=== PATIENT | female | born 1945 | race Caucasian/White ===

== ENCOUNTER 2016-07-10 17:40 | Inpatient (IN) | payer OTHER ==
[2016-07-10 17:58] LABS: FIO2 12
[2016-07-10 18:06] LABS: PCO2 Arterial 84 mmHg (35-45)
[2016-07-10 18:08] LABS: Hematocrit 32 % (35-47); Hemoglobin 9.3 g/dl (12.0-16.0); Mean Corpuscular HGB Conc 29 g/dl (31-36); Mean Corpuscular Hemoglobin 22 pg (27-31); Mean Corpuscular Volume 74 fL (80-97); Mean Platelet Volume 9 um3 (7.4-10.4); Red Blood Count 4.34 10^6/ul (4.0-5.4); Red Cell Distribution Width 23 % (10.5-15); White Blood Count 6.3 10^3/ul (3.5-10.8)
[2016-07-10 18:09] LABS: Add Diff/Slide Review? Slide Review Added; Comments Flag Yes
[2016-07-10 18:19] LABS: Albumin 3.4 g/dL (3.2-5.2); BUN/Creatinine Ratio 17.3 (8-20); Calcium 9.6 mg/dL (8.6-10.3); EGFR African American 98.8 (>60); EGFR Non-African American 76.8 (>60); Globulin 3.6 g/dL (2-4); Magnesium 1.9 mg/dL (1.9-2.7); Potassium 3.4 mmol/L (3.5-5.0); Total Bilirubin 2.2 mg/dL (0.2-1.0)
[2016-07-10 18:28] LABS: Troponin I 0.04 ng/mL (<0.04)
--- NOTE | 2016-07-10 18:42 | RAD ---
HISTORY: Shortness of breath COMPARISONS: None VIEWS:1: Single frontal portable view of the chest at 6:30 PM FINDINGS: LINES AND TUBES: There is left-sided pacemaker CARDIOMEDIASTINAL SILHOUETTE: The cardiac silhouette is enlarged. The cardiomediastinal silhouette is otherwise normal for portable technique. PLEURA: The costophrenic angles are sharp. No pleural abnormalities are noted. LUNG PARENCHYMA: There is a diffuse reticular pattern with indistinct pulmonary vessels. ABDOMEN: The upper abdomen is clear. There is no subphrenic gas. BONES AND SOFT TISSUES: No bone or soft tissue abnormalities are noted. IMPRESSION: CARDIOMEGALY WITH PULMONARY INTERSTITIAL EDEMA
[2016-07-10 18:45] LABS: Burr Cells 1+; Hypochromasia 3+
[2016-07-10 18:46] LABS: Macrocytosis 1+; Microcytosis 1+; Stomatocytes 2+; Target Cells 1+
[2016-07-10 18:47] LABS: Add Path Review? YES; Polychromasia 1+
--- NOTE | 2016-07-10 18:54 | ED ---
Priya Yuan Salem, scribed for Ronna Aguiar MD on 07/10/16 at 1842 . Respiratory - HPI Summary HPI Summary: Patient is a 70 y/o female who presents to the ED per EMS with low oxygen saturation since 1100. 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 She reports she is typically SOB and is normally on BiPAP at nights (mask, no breathing tube). Family states that pt fell on her left hip on June 11, 2016. She was hospitalized for four days, but her hip was not broken. Pt was transferred to [facility] as she developed resp distress. This was felt to be related to CHF. Pt was at [facility] x 3 weeks. Pt was on increased bipap setting and aggressive lasix, but was never intubated. Pt was transferred to [facility] for rehab yesterday. Today, when her oxygen levels had decreased, her bipap settings were adjusted and she was given Lasix 80mg IM at that time. Pt denies CP, abd pain, nausea or vomiting. Pt state her breathing has improved. She states yesterday had cough - non productive. Pt does have a salazar. Pt is on coumadin for a fib. PMHx significant for HTN, a fib, and DM. Pt is MOLST - full code - History of Current Complaint Chief Complaint: EDShortnessOfBreath Stated Complaint: LOW O2 STAT Time Seen by Provider: 07/10/16 17:42 Hx Obtained From: Patient, Family/Ad Copy Writer - Daughter and ., EMS Onset/Duration: Gradual Onset, Lasting Hours Initial Severity: Moderate Current Severity: Moderate Pain Intensity: 7 Sputum Amount: None Aggravating Factor(s): Nothing Alleviating Factor(s): Nothing Associated Signs and Symptoms: Negative - Risk Factors Status Asthmaticus Risk Factors: Negative Pulmonary Embolism Risk Factors: Negative Cardiac Risk Factors: Negative - Allergy/Home Medications Allergies/Adverse Reactions: Allergies Allergy/AdvReac Type Severity Reaction Status Date / Time Morphine Allergy Rash Verified 07/10/16 17:57 Home Medications: Home Medications Acetaminophen TAB* [Tylenol TAB*] 650 mg PO Q6H PRN 07/10/16 [History Confirmed 07/10/16] Albuterol 2.5MG/3ML (0.083%)* [Ventolin 2.5 MG/3 ML NEB.JOSE CRUZ*] 2.5 mg INH Q4H PRN 07/10/16 [History Confirmed 07/10/16] Albuterol HFA INHALER* [Ventolin HFA Inhaler*] 1 puff INH Q4H PRN 07/10/16 [ History Confirmed 07/10/16] Albuterol/Ipratropium NEB.JOSE CRUZ* [Duoneb (Albuterol 2.5 MG/Ipratropium 0.5 MG)] 1 neb INH Q4H PRN 07/10/16 [History Confirmed 07/10/16] Bisacodyl SUPP* [Dulcolax Supp*] 10 mg [place] DAILY PRN 07/10/16 [History Confirmed 07/10/16] Calcium Carbonate CHEW TAB* [Tums*] 500 mg PO DAILY PRN 07/10/16 [History Confirmed 07/10/16] Cholecalciferol [Vitamin D] 4,000 unit PO DAILY 07/10/16 [History Confirmed ] Cyanocobalamin [Vitamin B-12] 100 mcg PO DAILY 07/10/16 [History Confirmed 07/10] Docusate CAP* [Colace Cap*] 100 mg PO BID 07/10/16 [History Confirmed 07/10/16] Ferrous Sulfate TAB* 325 mg PO DAILY 07/10/16 [History Confirmed 07/10/16] Furosemide JOSE CRUZ* [Lasix JOSE CRUZ*] 80 mg PO ONCE PRN 07/10/16 [History Confirmed 07/10] Furosemide TAB* [Lasix TAB*] 40 mg PO ONCE 07/10/16 [History Confirmed 07/10/16] Furosemide TAB* [Lasix TAB*] 80 mg PO BID 07/10/16 [History Confirmed 07/10/16] Glucagon (Rdna) [Glucagon Emergency Kit] 1 mg IM ONCE PRN 07/10/16 [History Confirmed 07/10/16] Insulin GLARGINE(*) [Lantus(*)] 8 units SUBCUT BEDTIME 07/10/16 [History Confirmed 07/10/16] Levothyroxine Sodium 400 mcg PO DAILY 07/10/16 [History Confirmed 07/10/16] Lidocaine PATCH 5%* [Lidoderm 5% Patch*] 1 patch TRANSDERM DAILY 07/10/16 [ History Confirmed 07/10/16] Lisinopril [Lisinopril 2.5 MG-] 2.5 mg PO DAILY 07/10/16 [History Confirmed ] LoraTADine TAB(NF) [Claritin 10 MG TAB(NF)] 10 mg PO DAILY 07/10/16 [History Confirmed 07/10/16] Metoprolol Succinate XL TAB* [Toprol XL TAB*] 25 mg PO DAILY 07/10/16 [History Confirmed 07/10/16] Multivitamins/Minerals TAB* [Theragran/minerals TAB*] 1 tab PO DAILY 07/10/16 [ History Confirmed 07/10/16] Pantoprazole TAB (NF) [Protonix TAB (NF)] 20 mg PO DAILY 07/10/16 [History Confirmed 07/10/16] Sennosides-Docusate Sodium [Senna-S 8.6-50 mg] 2 tab PO BEDTIME 07/10/16 [ History Confirmed 07/10/16] PMH/Surg Hx/FS Hx/Imm Hx Previously Healthy: Yes Endocrine/Hematology History: Reports: Hx Anticoagulant Therapy - coumadin, Hx Diabetes Cardiovascular History: Reports: Hx Hypertension Respiratory History: Reports: Hx Asthma - Surgical History Surgery Procedure, Year, and Place: pacemaker Infectious Disease History: Unable to Obtain/Confirm Infectious Disease History: Denies: Traveled Outside the [place] in Last 30 Days - Family History Known Family History: Negative: Diabetes - Social History Lives: At [facility] Alcohol Use: Rare Hx Substance Use: No Substance Use Type: Reports: None Smoking Status (MU): Former Smoker Review of Systems Constitutional: Negative Negative: Fever Eyes: Negative ENT: Negative Cardiovascular: Negative Positive: Other - Low O2 Sat. . Negative: Chest Pain Positive: Shortness Of Breath. Negative: Cough Genitourinary: Negative Positive: Other - Left ankle, hip pain Skin: Negative Neurological: Negative All Other Systems Reviewed And Are Negative: Yes Physical Exam Triage Information Reviewed: Yes Vital Signs On Initial Exam: Initial Vitals Temp Pulse Resp BP Pulse Ox 98 F 75 16 119/83 99 07/10/16 17:48 07/10/16 17:48 07/10/16 17:48 07/10/16 17:48 07/10/16 17:48 Vital Signs Reviewed: Yes Appearance: Positive: Well-Appearing, Well-Nourished, Obese Skin: Positive: Warm, Skin Color Reflects Adequate Perfusion, Dry Head/Face: Positive: Normal Head/Face Inspection Eyes: Positive: Normal, EOMI, PHU ENT: Positive: Pharynx normal, TMs normal Neck: Positive: Supple, Nontender, No Lymphadenopathy Respiratory/Lung Sounds: Positive: Decreased Breath Sounds, Other - Pt speaking full easy sentences, no accessory muscle use, no distress. Negative: Stridor, Wheezes Cardiovascular: Positive: Normal, RRR - heart sounds distant second to habitus Abdomen Description: Positive: Nontender, No Organomegaly, Soft Bowel Sounds: Positive: Present Musculoskeletal: Positive: Normal. Negative: Strength/ROM Intact Neurological: Positive: Normal, Sensory/Motor Intact, Alert, Oriented to Person Place, Time Psychiatric: Positive: Normal AVPU Assessment: Alert - Vazquez Coma Scale Best Eye Response: 4 - Spontaneous Best Motor Response: 6 - Obeys Commands Best Verbal Response: 5 - Oriented Coma Scale Total: 15 Diagnostics - Vital Signs Vital Signs Temp Pulse Resp BP Pulse Ox 07/10/16 18:33 71 20 121/55 100 07/10/16 18:28 20 07/10/16 17:48 98 F 75 16 119/83 99 - Laboratory Lab Results: Lab Results 07/10/16 07/10/16 07/10/16 Range/Units 17:40 17:40 17:40 WBC 6.3 (3.5-10.8) 10^3/ul RBC 4.34 (4.0-5.4) 10^6/ul Hgb 9.3 L (12.0-16.0) g/dl Hct 32 L (35-47) % MCV 74 L (80-97) fL MCH 22 L (27-31) pg MCHC 29 L (31-36) g/dl RDW 23 H (10.5-15) % Plt Count 157 (150-450) 10^3/ul MPV 9 (7.4-10.4) um3 Neut % (Auto) 64.4 (38-83) % Lymph % (Auto) 23.3 L (25-47) % Perry % (Auto) 9.9 H (1-9) % Eos % (Auto) 1.3 (0-6) % Baso % (Auto) 1.1 (0-2) % Absolute Neuts (auto) 4.1 (1.5-7.7) 10^3/ul Absolute Lymphs (auto) 1.5 (1.0-4.8) 10^3/ul Absolute Monos (auto) 0.6 (0-0.8) 10^3/ul Absolute Eos (auto) 0.1 (0-0.6) 10^3/ul Absolute Basos (auto) 0.1 (0-0.2) 10^3/ul Absolute Nucleated RBC 0.01 10^3/ul Nucleated RBC % 0.2 Patient Temperature ABG pH (7.35-7.45) ABG pCO2 (35-45) mmHg ABG pO2 (80-100) mmHg ABG HCO3 (19-31) mmol/L ABG O2 Saturation (95-98) % ABG Base Excess (-2.0-2.0) Respiration Rate Ventilator Type Vent Mode FiO2 Inspiratory Time PEEP Pressure Support Pressure Control EPAP IPAP BiPAP Sodium 138 (133-145) mmol/L Potassium 3.4 L (3.5-5.0) mmol/L Chloride 84 L (101-111) mmol/L Carbon Dioxide Pending Anion Gap Pending BUN 13 (6-24) mg/dL Creatinine 0.75 (0.51-0.95) mg/dL Est GFR ( Amer) 98.8 (>60) Est GFR (Non-Af Amer) 76.8 (>60) BUN/Creatinine Ratio 17.3 (8-20) Glucose 136 H (70-100) mg/dL Lactic Acid 1.4 (0.5-2.0) mmol/L Calcium 9.6 (8.6-10.3) mg/dL Magnesium 1.9 (1.9-2.7) mg/dL Total Bilirubin 2.20 H (0.2-1.0) mg/dL AST 15 (13-39) U/L ALT 6 L (7-52) U/L Alkaline Phosphatase 58 (34-104) U/L Total Creatine Kinase 10 (10-223) U/L Troponin I 0.04 H* (<0.04) ng/mL Total Protein 7.0 (6.4-8.9) g/dL Albumin 3.4 (3.2-5.2) g/dL Globulin 3.6 (2-4) g/dL Albumin/Globulin Ratio 0.9 L (1-3) 07/10/16 Range/Units 17:47 WBC (3.5-10.8) 10^3/ul RBC (4.0-5.4) 10^6/ul Hgb (12.0-16.0) g/dl Hct (35-47) % MCV (80-97) fL MCH (27-31) pg MCHC (31-36) g/dl RDW (10.5-15) % Plt Count (150-450) 10^3/ul MPV (7.4-10.4) um3 Neut % (Auto) (38-83) % Lymph % (Auto) (25-47) % Perry % (Auto) (1-9) % Eos % (Auto) (0-6) % Baso % (Auto) (0-2) % Absolute Neuts (auto) (1.5-7.7) 10^3/ul Absolute Lymphs (auto) (1.0-4.8) 10^3/ul Absolute Monos (auto) (0-0.8) 10^3/ul Absolute Eos (auto) (0-0.6) 10^3/ul Absolute Basos (auto) (0-0.2) 10^3/ul Absolute Nucleated RBC 10^3/ul Nucleated RBC % Patient Temperature Not Reportable ABG pH 7.42 (7.35-7.45) ABG pCO2 84 H* (35-45) mmHg ABG pO2 140 H (80-100) mmHg ABG HCO3 45.4 H* (19-31) mmol/L ABG O2 Saturation 99.8 H (95-98) % ABG Base Excess 26.2 H (-2.0-2.0) Respiration Rate Not Reportable Ventilator Type Not Reportable Vent Mode Not Reportable FiO2 12 Inspiratory Time Not Reportable PEEP Not Reportable Pressure Support Not Reportable Pressure Control Not Reportable EPAP Not Reportable IPAP Not Reportable BiPAP Not Reportable Sodium (133-145) mmol/L Potassium (3.5-5.0) mmol/L Chloride (101-111) mmol/L Carbon Dioxide Anion Gap BUN (6-24) mg/dL Creatinine (0.51-0.95) mg/dL Est GFR ( Amer) (>60) Est GFR (Non-Af Amer) (>60) BUN/Creatinine Ratio (8-20) Glucose (70-100) mg/dL Lactic Acid (0.5-2.0) mmol/L Calcium (8.6-10.3) mg/dL Magnesium (1.9-2.7) mg/dL Total Bilirubin (0.2-1.0) mg/dL AST (13-39) U/L ALT (7-52) U/L Alkaline Phosphatase (34-104) U/L Total Creatine Kinase (10-223) U/L Troponin I (<0.04) ng/mL Total Protein (6.4-8.9) g/dL Albumin (3.2-5.2) g/dL Globulin (2-4) g/dL Albumin/Globulin Ratio (1-3) Result Diagrams: 07/10/16 17:40 07/10/16 17:40 Lab Statement: Any lab studies that have been ordered have been reviewed, and results considered in the medical decision making process. - Radiology CXR Radiology Interpretation Completed By: Radiologist - IMPRESSION: CARDIOMEGALY WITH PULMONARY INTERSTITIAL EDEMA - EKG 1750 EKG Interpretation: 70 bpm. IVCD. Occasional PVC. Pt with pacer. Re-Evaluation - Re-Evaluation First Eval Re-Evaluation Time: 18:30 Comment: Pt continues to do well - no complaints.Pt placed on home BIPAP settings given elevated PCO2. Reviewed labs with pt - borderline troponin. Pt with EKG changes from [facility] last (2008). Records for [facility] requested. d/ w Dr. Harman - will admit pt. Pt in agreement with plan Disposition - Course Assessment/Plan: Pt presents to ED by EMS with extensive hx including recent hospitalization for respi failure. Pt was transferred from rehab facility with report of hypoxia on her baseline bipap. Upon arrival to ED, pt saturation 99% on 12L oxymax. Pt withotu apparent respiratory distress. 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 Pt with salazar and is diruesis. Will check abg and resp support as indications. Will check labs, ekg, cxr. Pt's last visit to [facility] > 7 years ago - Diagnoses Provider Diagnoses: Hypercapnia, Elevated troponin - Physician Notifications Discussed Care Of Patient With: Dr. Harman - accepting pt admission Time Discussed With Above Provider: 18:35 Instructed by Provider To: Admit As Inpatient Discharge - Discharge Plan Condition: Fair Disposition: ADMITTED TO [facility] The documentation as recorded by the Priya de la cruz Salem accurately reflects the service I personally performed and the decisions made by me, Ronna Aguiar MD.
[2016-07-10] MEDS ORDERED: Bisacodyl SUPP* 10 MG SUPP PR PRN (20:16)
[2016-07-10] MEDS ORDERED: Albuterol/Ipratropium NEB.SOL* Albuterol 2.5 MG/Ipratropium 0.5 MG 3 ML INH PRN (20:16)
[2016-07-10] MEDS ORDERED: Albuterol 2.5 MG/3 ML NEB.SOL* (0.083%) INH PRN (20:16)
[2016-07-10] MEDS ORDERED: Albuterol HFA INHALER* 8 gm MDI INH PRN (20:16)
[2016-07-10] MEDS ORDERED: Calcium Carbonate CHEW TAB* 500 MG (TUMS) PO PRN (20:16)
[2016-07-10] MEDS ORDERED: Furosemide SOL* 10 MG/ML 60 ML BOT PO PRN (20:16)
[2016-07-10] MEDS ORDERED: Dextrose 50% Syringe 50 ML* 25 GM/50 ML SYRINGE IV PUSH PRN (20:36)
[2016-07-10] MEDS: Docusate CAP* 100 MG PO SCH (21:55)
[2016-07-10] MEDS: Senna TAB PO SCH (21:56)
[2016-07-10] MEDS: Insulin GLARGINE(*) 1 UNITS UNIT SUBCUT SCH (22:05)
[2016-07-10] MEDS: Furosemide TAB* 40 MG PO SCH (22:05)
[2016-07-10] MEDS: Insulin LISPRO* 1 UNITS UNIT SUBCUT SCH (22:05)
[2016-07-10] MEDS: Acetaminophen TAB* 325 MG PO PRN (23:06)
[2016-07-11 02:51] LABS: Troponin I 0.04 ng/mL (<0.04)
--- NOTE | 2016-07-11 04:25 | HP ---
HISTORY AND PHYSICAL: DATE OF ADMISSION: 07/10/16 CHIEF COMPLAINT: Shortness of breath. HISTORY OF PRESENT ILLNESS: The patient is a 70-year-old woman who was just admitted to [facility] from a stay in [place] where she was doing fine yesterday evening when she initially arrived, but became hypoxic today. Apparently, she arrived at 5 p.m. yesterday, ate, and slept well. She had physical therapy today, which also went well; but about 2 p.m. while in her room , her oxygen apparently dropped to about 58%. The patient does remember all of what happened. She was placed on BiPAP and did not improve dramatically. She was given her usual Zaroxolyn, but then got 80 mg of intravenous Lasix. She has put out quite a bit of fluid since then over a liter. She was sent to the hospital after that. The patient denies ever having any chest pain, but had a little wheezing and no congestion. She already feels better and back to her usual state of health. In terms of eating, she only had little soup today. She also had some macaroni salad yesterday, which may have been a bit salty. She is back on the BiPAP, but she is on BiPAP normally in the evening at [facility]. PAST MEDICAL HISTORY: Significant for type 2 diabetes with diabetic neuropathy and gastroparesis; morbid obesity; obstructive sleep apnea, on BiPAP at night; hypothyroidism; sick sinus syndrome with atrial fibrillation, on anticoagulation , status post pacemaker placement; hyperlipidemia; hypertension; GERD; recent admission to [facility] for concern of the left hip fracture, which did not come to pass, but she did end up having hypercapnic respiratory failure. CURRENT MEDICATIONS: As follow: 1. Albuterol inhaler 1 puff every 4 hours as needed. 2. Calcium carbonate 500 mg daily as needed. 3. Furosemide 80 mg daily as needed after Lasix solution. 4. Glucagon 1 mg IM once as needed. 5. Furosemide 40 mg daily. 6. Albuterol DuoNebs nebulizer 1 nebulizer every 4 hours as needed. 7. Dulcolax suppository 10 mg daily as needed. 8. Albuterol nebulizer 2.5 mg inhaler every 4 hours as needed. 9. Lidocaine patch 1 patch transdermal daily. 10. Tylenol 650 mg every 6 hours as needed. 11. Furosemide 80 mg twice daily. 12. Docusate 100 mg twice daily. 13. Vitamin D 4000 units daily. 14. Vitamin B12 100 mcg daily. 15. Senna S 2 tabs at bedtime. 16. Protonix 20 mg daily. 17. Multivitamin 1 tablet daily. 18. Metoprolol succinate 25 mg daily. 19. Loratadine 10 mg daily. 20. Lisinopril 2.5 mg daily. 21. Synthroid 400 mcg daily. 22. Lantus insulin 8 units subcu at bedtime. 23. Ferrous sulfate 325 mg daily. ALLERGIES: She has an allergy/adverse reaction to MORPHINE. FAMILY HISTORY: High cholesterol in her sister, heart disease in her father and sister, alcohol abuse in her brother and her mother had some form of cancer. SOCIAL HISTORY: She is . Lives with her spouse, currently at [facility]. No tobacco, no alcohol, or recreational drug use. REVIEW OF SYSTEMS: A 14-point review of systems was completed with the patient. All pertinent positives and negatives are in the history of present illness, otherwise it is negative. PHYSICAL EXAMINATION GENERAL: Obese woman, lying in bed, in no acute distress. VITAL SIGNS: Temperature 98.1 degrees, heart rate 71 beats per minute, respiratory rate 18 breaths per minute, pulse ox 100%, and blood pressure 111/ 66. HEENT: Normocephalic, atraumatic. Pupils are equal, round, and reactive to light. Moist mucous membranes. NECK: Supple. No JVD, bruits, palpable thyroid, or lymphadenopathy. CHEST: Decreased breath sounds bilaterally. CARDIOVASCULAR: S1, S2 appreciated. ABDOMEN: Positive bowel sounds in all 4 quadrants. Soft, nontender, nondistended, obese. EXTREMITIES: No cyanosis, clubbing. Got bilateral edema. NEURO: Alert and oriented x3. Moves all extremities. SKIN: No rashes or abnormalities. LABORATORY DATA: Sodium 138, potassium 3.4, chloride 84, CO2 45, BUN 13, creatinine 0.75, glucose 136, troponin 0.04. BNP 244. White count 6.3, hemoglobin 9.3, hematocrit 32, platelets 157. INR 2.99. Chest x-ray was interpreted by Radiology as cardiomegaly with pulmonary interstitial edema. EKG showed AFib with intraventricular conduction delay. ASSESSMENT AND PLAN: 1. Respiratory distress. The patient now back to her baseline, probably had some fluid overload of unknown etiology. May need diuretics adjusted, but I suspect the patient will be able to go back to [facility] tomorrow on her usual settings. 2. Atrial fibrillation. Her heart rate is adequately controlled and her INR is 2.99, but I do not see was she on Coumadin. This needs to be researched, but I assume by her INR that she is on Coumadin and this was not documented in the transfer. 3. Chronic obstructive pulmonary disease. Continue inhalers and nebulizers. No evidence of wheezing. 4. Pain management. Continue lidocaine patch. 5. Hypothyroidism, stable. Continue Synthroid. 6. Diabetes mellitus. Continue current regimen. Fingersticks sliding scale insulin. 7. FEN. Consistent carb diet. 8. DVT prophylaxis. She is supposedly on Coumadin. Her INR is therapeutic and finally, the patient is a full code. TIME SPENT: Over 75 minutes were spent on this H and P, more than 40 minutes of which were spent in direct [id number] contact with the patient in evaluation, physical exam, counseling, and coordination of care. CC: Garry Magaña* [id number]/[facility] #: [id number] [facility] HOSPITALGail
[2016-07-11] MEDS: Levothyroxine TAB* 100 MCG TAB PO SCH (06:10)
[2016-07-11] MEDS: Insulin LISPRO* 1 UNITS UNIT SUBCUT SCH ×4 (08:25→21:40)
[2016-07-11] MEDS: Furosemide TAB* 40 MG PO SCH ×2 (08:25→17:23)
[2016-07-11] MEDS: Cholecalciferol TAB* 1000 UNITS PO SCH (08:25)
[2016-07-11] MEDS: Cyanocobalamin TAB* 500 MCG PO SCH (08:26)
[2016-07-11] MEDS: Docusate CAP* 100 MG PO SCH ×2 (08:26→21:52)
[2016-07-11] MEDS: Ferrous Sulfate TAB* 325 MG PO SCH (08:27)
[2016-07-11] MEDS: Lidocaine PATCH 5%* 1 PATCH TRANSDERM SCH (08:29)
[2016-07-11] MEDS: Lisinopril TAB* 5 MG PO SCH (08:34)
[2016-07-11] MEDS: Metoprolol Succinate XL TAB* 25 MG PO SCH (08:34)
[2016-07-11] MEDS: Multivitamins/Minerals TAB PO SCH (08:35)
[2016-07-11] MEDS: Pantoprazole TAB (NF) 20 MG TAB PO SCH (09:12)
[2016-07-11 10:19] LABS: FIO2 50
[2016-07-11 10:32] LABS: PCO2 Arterial 89 mmHg (35-45)
[2016-07-11] MEDS: Acetaminophen TAB* 325 MG PO PRN (13:54)
--- NOTE | 2016-07-11 14:39 | PN ---
Subjective Date of Service: 07/11/16 Interval History: Pt is feeling ok. She is SOB which is her usual. Her speech is slurred which her states is usual. She c/o pain in her legs. Objective Active Medications: Acetaminophen (Tylenol Tab*) 650 mg PO Q6H PRN PRN Reason: PAIN Last Admin: 07/11/16 13:54 Dose: 650 mg Albuterol (Ventolin 2.5 Mg/3 Ml Neb.Carol*) 2.5 mg INH Q4H PRN PRN Reason: WHEEZING Albuterol (Ventolin Hfa Inhaler*) 1 puff INH Q4H PRN PRN Reason: SHORTNESS OF BREATH Albuterol/Ipratropium (Duoneb (Albuterol 2.5 Mg/Ipratropium 0.5 Mg)) 1 neb INH Q4H PRN PRN Reason: SHORTNESS OF BREATH Bisacodyl (Dulcolax Supp*) 10 mg AL DAILY PRN PRN Reason: CONSTIPATION Calcium Carbonate (Tums*) 500 mg PO DAILY PRN PRN Reason: INDIGESTION Cetirizine HCl (Zyrtec*) 10 mg PO QPM [facility] Cholecalciferol (Vitamin D Tab*) 4,000 units PO DAILY [facility] Last Admin: 07/11/16 08:25 Dose: 4,000 units Cyanocobalamin (Vitamin B12 Tab*) 250 mcg PO DAILY [facility] Last Admin: 07/11/16 08:26 Dose: 250 mcg Dextrose (D50w Syringe 50 Ml*) 12.5 gm IV PUSH .FOR FS < 60 - SS PRN PRN Reason: FS < 60 Docusate Sodium (Colace Cap*) 100 mg PO BID [facility] Last Admin: 07/11/16 08:26 Dose: 100 mg Ferrous Sulfate (Ferrous Sulfate Tab*) 325 mg PO DAILY [facility] Last Admin: 07/11/16 08:27 Dose: 325 mg Furosemide (Lasix Tab*) 80 mg PO 0800,1800 [facility] Last Admin: 07/11/16 08:25 Dose: 80 mg Insulin Glargine (Lantus(*)) 8 units SUBCUT BEDTIME [facility] Last Admin: 07/10/16 22:05 Dose: 8 units Insulin Human Lispro (Humalog*) 0 units SUBCUT ACHS [facility] PRN Reason: Protocol Last Admin: 07/11/16 12:31 Dose: 3 units Levothyroxine Sodium (Synthroid Tab*) 400 mcg PO DAILY@0600 [facility] Last Admin: 07/11/16 06:10 Dose: 400 mcg Lidocaine (Lidoderm 5% Patch*) 1 patch TRANSDERM DAILY [facility] Last Admin: 07/11/16 08:29 Dose: 1 patch Lisinopril (Prinivil Tab*) 2.5 mg PO DAILY [facility] Last Admin: 07/11/16 08:34 Dose: 2.5 mg Metoprolol Succinate (Toprol Xl Tab*) 25 mg PO DAILY [facility] Last Admin: 07/11/16 08:34 Dose: 25 mg Multivitamins/Minerals (Theragran/Minerals Tab*) 1 tab PO DAILY [facility] Last Admin: 07/11/16 08:35 Dose: 1 tab Pantoprazole Sodium (Protonix Tab (Nf)) 20 mg PO DAILY [facility] Last Admin: 07/11/16 09:12 Dose: 20 mg Pharmacy Profile Note (Lidocaine Patch Remove*) 1 note PATCH OFF 2100 [facility] Senna (Senokot Tab*) 2 tab PO BEDTIME [facility] Last Admin: 07/10/16 21:56 Dose: Not Given Vital Signs 07/10/16 07/10/16 07/10/16 19:34 20:48 21:23 Temperature 98.1 F 98.2 F 97.9 F Pulse Rate 71 70 116 Respiratory 18 20 20 Rate Blood Pressure 111/66 121/71 116/69 (mmHg) O2 Sat by Pulse 100 100 96 Oximetry 07/11/16 07/11/16 07/11/16 04:25 08:07 11:17 Temperature 97.2 F 98.5 F Pulse Rate 70 71 69 Respiratory 16 20 22 Rate Blood Pressure 112/52 128/54 138/51 (mmHg) O2 Sat by Pulse 98 97 98 Oximetry Oxygen Devices in Use Now: Nasal Cannula - 98%-6L Appearance: Super morbidly obese female sitting up in bed, NAD Eyes: No Scleral Icterus Ears/Nose/Mouth/Throat: Mucous Membranes Moist Respiratory: Symmetrical Chest Expansion and Respiratory Effort, Clear to Auscultation Cardiovascular: NL Sounds; No Murmurs; No JVD, RRR, No Edema Abdominal: NL Sounds; No Tenderness; No Distention Extremities: No Clubbing, Cyanosis Skin: No Rash or Ulcers, No Nodules or Sclerosis Neurological: Alert and Oriented x 3, - - + dysarthric speech Result Diagrams: 07/10/16 17:40 07/10/16 17:40 Additional Lab and Data: Lab Results 07/10/16 07/10/16 07/10/16 Range/Units 17:40 17:40 17:40 WBC 6.3 (3.5-10.8) 10^3/ul RBC 4.34 (4.0-5.4) 10^6/ul Hgb 9.3 L (12.0-16.0) g/dl Hct 32 L (35-47) % MCV 74 L (80-97) fL MCH 22 L (27-31) pg MCHC 29 L (31-36) g/dl RDW 23 H (10.5-15) % Plt Count 157 (150-450) 10^3/ul MPV 9 (7.4-10.4) um3 Neut % (Auto) 64.4 (38-83) % Lymph % (Auto) 23.3 L (25-47) % [place] % (Auto) 9.9 H (1-9) % Eos % (Auto) 1.3 (0-6) % Baso % (Auto) 1.1 (0-2) % Absolute Neuts (auto) 4.1 (1.5-7.7) 10^3/ul Absolute Lymphs (auto) 1.5 (1.0-4.8) 10^3/ul Absolute Monos (auto) 0.6 (0-0.8) 10^3/ul Absolute Eos (auto) 0.1 (0-0.6) 10^3/ul Absolute Basos (auto) 0.1 (0-0.2) 10^3/ul Absolute Nucleated RBC 0.01 10^3/ul Nucleated RBC % 0.2 Patient Temperature ABG pH (7.35-7.45) ABG pCO2 (35-45) mmHg ABG pO2 (80-100) mmHg ABG HCO3 (19-31) mmol/L ABG O2 Saturation (95-98) % ABG Base Excess (-2.0-2.0) Respiration Rate Ventilator Type Vent Mode FiO2 Inspiratory Time PEEP Pressure Support Pressure Control EPAP IPAP BiPAP Sodium 138 (133-145) mmol/L Potassium 3.4 L (3.5-5.0) mmol/L Chloride 84 L (101-111) mmol/L Carbon Dioxide Pending Anion Gap Pending BUN 13 (6-24) mg/dL Creatinine 0.75 (0.51-0.95) mg/dL Est GFR ( Amer) 98.8 (>60) Est GFR (Non-Af Amer) 76.8 (>60) BUN/Creatinine Ratio 17.3 (8-20) Glucose 136 H (70-100) mg/dL Lactic Acid 1.4 (0.5-2.0) mmol/L Calcium 9.6 (8.6-10.3) mg/dL Magnesium 1.9 (1.9-2.7) mg/dL Total Bilirubin 2.20 H (0.2-1.0) mg/dL AST 15 (13-39) U/L ALT 6 L (7-52) U/L Alkaline Phosphatase 58 (34-104) U/L Total Creatine Kinase 10 (10-223) U/L Troponin I 0.04 H* (<0.04) ng/mL Total Protein 7.0 (6.4-8.9) g/dL Albumin 3.4 (3.2-5.2) g/dL Globulin 3.6 (2-4) g/dL Albumin/Globulin Ratio 0.9 L (1-3) 07/10/16 Range/Units 17:47 WBC (3.5-10.8) 10^3/ul RBC (4.0-5.4) 10^6/ul Hgb (12.0-16.0) g/dl Hct (35-47) % MCV (80-97) fL MCH (27-31) pg MCHC (31-36) g/dl RDW (10.5-15) % Plt Count (150-450) 10^3/ul MPV (7.4-10.4) um3 Neut % (Auto) (38-83) % Lymph % (Auto) (25-47) % [place] % (Auto) (1-9) % Eos % (Auto) (0-6) % Baso % (Auto) (0-2) % Absolute Neuts (auto) (1.5-7.7) 10^3/ul Absolute Lymphs (auto) (1.0-4.8) 10^3/ul Absolute Monos (auto) (0-0.8) 10^3/ul Absolute Eos (auto) (0-0.6) 10^3/ul Absolute Basos (auto) (0-0.2) 10^3/ul Absolute Nucleated RBC 10^3/ul Nucleated RBC % Patient Temperature Not Reportable ABG pH 7.42 (7.35-7.45) ABG pCO2 84 H* (35-45) mmHg ABG pO2 140 H (80-100) mmHg ABG HCO3 45.4 H* (19-31) mmol/L ABG O2 Saturation 99.8 H (95-98) % ABG Base Excess 26.2 H (-2.0-2.0) Respiration Rate Not Reportable Ventilator Type Not Reportable Vent Mode Not Reportable FiO2 12 Inspiratory Time Not Reportable PEEP Not Reportable Pressure Support Not Reportable Pressure Control Not Reportable EPAP Not Reportable IPAP Not Reportable BiPAP Not Reportable Sodium (133-145) mmol/L Potassium (3.5-5.0) mmol/L Chloride (101-111) mmol/L Carbon Dioxide Anion Gap BUN (6-24) mg/dL Creatinine (0.51-0.95) mg/dL Est GFR ( Amer) (>60) Est GFR (Non-Af Amer) (>60) BUN/Creatinine Ratio (8-20) Glucose (70-100) mg/dL Lactic Acid (0.5-2.0) mmol/L Calcium (8.6-10.3) mg/dL Magnesium (1.9-2.7) mg/dL Total Bilirubin (0.2-1.0) mg/dL AST (13-39) U/L ALT (7-52) U/L Alkaline Phosphatase (34-104) U/L Total Creatine Kinase (10-223) U/L Troponin I (<0.04) ng/mL Total Protein (6.4-8.9) g/dL Albumin (3.2-5.2) g/dL Globulin (2-4) g/dL Albumin/Globulin Ratio (1-3) Microbiology and Other Data: Microbiology 07/10/16 22:50 Nasal Screen MRSA (PCR)(SASKIA) - Final Nasal Mrsa Positive Assess/Plan/Problems-Billing Ms Springer is a super morbidly obese female with a h/o chronic hypercarbic respiratory failure, type II DM, JOLEEN, hypothyroidism, h/o afib with SSS, HTN, HLD and GERD who presented to the ER with c/o low O2 saturations. - Patient Problems (1) Hypoxia Current Visit: Yes Status: Acute Code(s): R09.02 - HYPOXEMIA SNOMED Code(s ): 259110316 Comment: The patient was markedly hypoxic upon EMS arrival to [facility]. Her O2 saturtations are now stable and it appears she may be able to be weaned down some on the O2. ? pulmonary edema as cause of the hypoxia. Will monitor overnight to ensure she is stable prior to going back to rehab. (2) Chronic hypercapnic respiratory failure Current Visit: Yes Status: Acute Comment: The patient is chronically hypercarbic. Her pH is normal with a significantly elevated pCO2. Continue BiPAP with sleep. ? if her hypercarbia is secondary to restrictive lung disease. (3) CHF (congestive heart failure) Current Visit: Yes Status: Acute Code(s): I50.9 - HEART FAILURE, UNSPECIFIED SNOMED Code(s): 64280132 Comment: The patient is on chronic diuretic therapy with lasix 80mg po BID. She recieved IM lasix prior to the arrival and seemed to improve quickly. Will continue her home diuretic therapy. (4) Elevated troponin Current Visit: Yes Status: Acute Code(s): R74.8 - ABNORMAL LEVELS OF OTHER SERUM ENZYMES SNOMED Code(s): 275210806 Comment: Likely related to demand ischemia from probable CHF. No further work up. Will try to get echo report from [facility]. (5) Type II diabetes mellitus Current Visit: Yes Status: Acute Comment: Sugars are under good control. Continue current insulin regimen. (6) HTN (hypertension) Current Visit: Yes Status: Acute Code(s): I10 - ESSENTIAL (PRIMARY) HYPERTENSION SNOMED Code(s): 29426088 Comment: BP is under good control. Continue current medication regimen. (7) HLD (hyperlipidemia) Current Visit: Yes Status: Acute Code(s): E78.5 - HYPERLIPIDEMIA, UNSPECIFIED SNOMED Code(s): 37757272 Comment: She is not on any therapy specifically for hyperlipidemia. Follow as outpatient. (8) Hypothyroidism Current Visit: Yes Status: Acute Code(s): E03.9 - HYPOTHYROIDISM, UNSPECIFIED SNOMED Code(s): 81500512 Comment: Continue current dose of synthroid. Check TSH tomorrow. (9) Atrial fibrillation Current Visit: Yes Status: Acute Code(s): I48.91 - UNSPECIFIED ATRIAL FIBRILLATION SNOMED Code(s): 80734150 Comment: She is paced on tele. Continue metoprolol XL 25mg daily. Her INR is supratherapeutic. Recheck tomorrow. Hold on coumadin (though this is not listed on her home list-will confirm with [facility] if she is on this). (10) GERD (gastroesophageal reflux disease) Current Visit: Yes Status: Acute Code(s): K21.9 - GASTRO-ESOPHAGEAL REFLUX DISEASE WITHOUT ESOPHAGITIS SNOMED Code(s): 168781948 Comment: Continue protonix (11) DVT prophylaxis Current Visit: Yes Status: Acute Code(s): RLA9654 - SNOMED Code(s): 775761935 Comment: supratherapeutic INR (12) Full code status Current Visit: Yes Status: Acute Code(s): Z78.9 - OTHER SPECIFIED HEALTH STATUS SNOMED Code(s): 603758576
[2016-07-11 15:24] LABS: BUN/Creatinine Ratio 16.2 (8-20); Calcium 9.2 mg/dL (8.6-10.3); EGFR African American 100.4 (>60); Potassium 3.2 mmol/L (3.5-5.0)
[2016-07-11] MEDS ORDERED: Potassium Chlor TAB* 20 MEQ TAB.ER PO ONE (15:54)
[2016-07-11] MEDS: Cetirizine* 10 MG TAB PO SCH (17:23)
[2016-07-11] MEDS: Insulin GLARGINE(*) 1 UNITS UNIT SUBCUT SCH (21:41)
[2016-07-11] MEDS: Lidocaine Patch REMOVE* 1 NOTE MISC PATCH OFF SCH (21:44)
[2016-07-11] MEDS: Senna TAB PO SCH (21:52)
[2016-07-11 21:53] LABS: BIPAP Y; EPAP 8; FIO2 50; IPAP 15
[2016-07-11 21:58] LABS: PCO2 Arterial 106 mmHg (35-45)
[2016-07-12 05:05] LABS: Hematocrit 28 % (35-47); Hemoglobin 8.1 g/dl (12.0-16.0); Mean Corpuscular HGB Conc 29 g/dl (31-36); Mean Corpuscular Hemoglobin 22 pg (27-31); Mean Corpuscular Volume 74 fL (80-97); Mean Platelet Volume 9 um3 (7.4-10.4); Red Blood Count 3.72 10^6/ul (4.0-5.4); Red Cell Distribution Width 23 % (10.5-15); White Blood Count 5.4 10^3/ul (3.5-10.8)
[2016-07-12 05:08] LABS: Comments Flag Yes
[2016-07-12 05:15] LABS: BUN/Creatinine Ratio 17.1 (8-20); EGFR African American 97.3 (>60); EGFR Non-African American 75.7 (>60); Potassium 3.3 mmol/L (3.5-5.0)
[2016-07-12 05:39] LABS: TSH (Thyroid Stimulating Horm) 8.5 mcIU/mL (0.34-5.60)
[2016-07-12] MEDS: Levothyroxine TAB* 100 MCG TAB PO SCH (06:12)
[2016-07-12] MEDS: Insulin LISPRO* 1 UNITS UNIT SUBCUT SCH ×4 (08:32→22:00)
[2016-07-12] MEDS ORDERED: Potassium Chlor TAB* 20 MEQ TAB.ER PO ONE (08:35)
[2016-07-12] MEDS ORDERED: Influenza VAC *QUAD* 2016-17* 0.5 ML SYRINGE IM ONE (09:00)
[2016-07-12] MEDS: Lidocaine PATCH 5%* 1 PATCH TRANSDERM SCH (09:27)
[2016-07-12] MEDS: Multivitamins/Minerals TAB PO SCH (09:39)
[2016-07-12] MEDS: Cyanocobalamin TAB* 500 MCG PO SCH (09:39)
[2016-07-12] MEDS: Docusate CAP* 100 MG PO SCH ×2 (09:39→22:07)
[2016-07-12] MEDS: Ferrous Sulfate TAB* 325 MG PO SCH (09:39)
[2016-07-12] MEDS: Lisinopril TAB* 5 MG PO SCH (09:40)
[2016-07-12] MEDS: Cholecalciferol TAB* 1000 UNITS PO SCH (09:41)
[2016-07-12] MEDS: Metoprolol Succinate XL TAB* 25 MG PO SCH (09:42)
[2016-07-12] MEDS: Furosemide TAB* 40 MG PO SCH (09:42)
--- NOTE | 2016-07-12 09:51 | PN ---
Subjective Date of Service: 07/12/16 Interval History: Pt is feeling ok currently. Last night she became unresponsive to voice, light touch and sternal rub. She was placed on BiPAP and shortly after giong back on BiPAP (took a while to get ABG) her pCO2 level was noted to be markedly elevated at 106. Her mentation improved. This am nursing noted that despite being on the BiPAP she was still drowsy and falling asleep easily. She denies SOB currently but states when she is off the BiPAP she is SOB. Objective Active Medications: Acetaminophen (Tylenol Tab*) 650 mg PO Q6H PRN PRN Reason: PAIN Last Admin: 07/11/16 13:54 Dose: 650 mg Albuterol (Ventolin 2.5 Mg/3 Ml Neb.Carol*) 2.5 mg INH Q4H PRN PRN Reason: WHEEZING Albuterol/Ipratropium (Duoneb (Albuterol 2.5 Mg/Ipratropium 0.5 Mg)) 1 neb INH Q4H PRN PRN Reason: SHORTNESS OF BREATH Bisacodyl (Dulcolax Supp*) 10 mg GA DAILY PRN PRN Reason: CONSTIPATION Calcium Carbonate (Tums*) 500 mg PO DAILY PRN PRN Reason: INDIGESTION Cetirizine HCl (Zyrtec*) 10 mg PO QPM [facility] Last Admin: 07/11/16 17:23 Dose: 10 mg Cholecalciferol (Vitamin D Tab*) 4,000 units PO DAILY [facility] Last Admin: 07/12/16 09:41 Dose: 4,000 units Cyanocobalamin (Vitamin B12 Tab*) 250 mcg PO DAILY [facility] Last Admin: 07/12/16 09:39 Dose: 250 mcg Dextrose (D50w Syringe 50 Ml*) 12.5 gm IV PUSH .FOR FS < 60 - SS PRN PRN Reason: FS < 60 Docusate Sodium (Colace Cap*) 100 mg PO BID [facility] Last Admin: 07/12/16 09:39 Dose: 100 mg Ferrous Sulfate (Ferrous Sulfate Tab*) 325 mg PO DAILY [facility] Last Admin: 07/12/16 09:39 Dose: 325 mg Furosemide (Lasix Tab*) 80 mg PO 0800,1800 [facility] Last Admin: 07/12/16 09:42 Dose: 80 mg Insulin Glargine (Lantus(*)) 8 units SUBCUT BEDTIME [facility] Last Admin: 07/11/16 21:41 Dose: 8 units Insulin Human Lispro (Humalog*) 0 units SUBCUT ACHS [facility] PRN Reason: Protocol Last Admin: 07/12/16 08:32 Dose: Not Given Levothyroxine Sodium (Synthroid Tab*) 400 mcg PO DAILY@0600 [facility] Last Admin: 07/12/16 06:12 Dose: 400 mcg Lidocaine (Lidoderm 5% Patch*) 1 patch TRANSDERM DAILY [facility] Last Admin: 07/12/16 09:27 Dose: 1 patch Lisinopril (Prinivil Tab*) 2.5 mg PO DAILY [facility] Last Admin: 07/12/16 09:40 Dose: 2.5 mg Metoprolol Succinate (Toprol Xl Tab*) 25 mg PO DAILY [facility] Last Admin: 07/12/16 09:42 Dose: 25 mg Multivitamins/Minerals (Theragran/Minerals Tab*) 1 tab PO DAILY [facility] Last Admin: 07/12/16 09:39 Dose: 1 tab Pantoprazole Sodium (Protonix Tab (Nf)) 20 mg PO DAILY [facility] Last Admin: 07/11/16 09:12 Dose: 20 mg Pharmacy Profile Note (Lidocaine Patch Remove*) 1 note PATCH OFF 2100 [facility] Last Admin: 07/11/16 21:44 Dose: 1 note Senna (Senokot Tab*) 2 tab PO BEDTIME [facility] Last Admin: 07/11/16 21:52 Dose: Not Given Vital Signs 07/11/16 07/11/16 07/11/16 11:17 15:31 20:00 Temperature 98.5 F 98.0 F Pulse Rate 69 69 Respiratory 22 20 17 Rate Blood Pressure 138/51 122/57 (mmHg) O2 Sat by Pulse 98 100 Oximetry 07/11/16 07/11/16 07/12/16 20:07 21:19 00:35 Temperature 98.5 F 98.4 F Pulse Rate 70 70 71 Respiratory 17 17 20 Rate Blood Pressure 102/44 118/41 125/47 (mmHg) O2 Sat by Pulse 99 100 96 Oximetry 07/12/16 07/12/16 04:24 07:46 Temperature 97.8 F Pulse Rate 65 Respiratory 16 20 Rate Blood Pressure 114/49 (mmHg) O2 Sat by Pulse 99 Oximetry Oxygen Devices in Use Now: CPAP/BiPAP - 50% FiO2-95% Appearance: Super morbidly obese female sitting up in bed on BiPAP awake, NAD Eyes: No Scleral Icterus Ears/Nose/Mouth/Throat: Mucous Membranes Moist Respiratory: Symmetrical Chest Expansion and Respiratory Effort, Clear to Auscultation - anteriorly and lateral bases though breath sounds are markedly diminished in all lung teague, - - on BiPAP Cardiovascular: NL Sounds; No Murmurs; No JVD, RRR Abdominal: NL Sounds; No Tenderness; No Distention Extremities: No Clubbing, Cyanosis Skin: No Nodules or Sclerosis, - - shallow ulceration to R lower lateral leg not inspected today Neurological: Alert and Oriented x 3 Result Diagrams: 07/12/16 04:44 07/12/16 04:44 Additional Lab and Data: Lab Results 07/10/16 07/10/16 07/10/16 Range/Units 17:40 17:40 17:40 WBC 6.3 (3.5-10.8) 10^3/ul RBC 4.34 (4.0-5.4) 10^6/ul Hgb 9.3 L (12.0-16.0) g/dl Hct 32 L (35-47) % MCV 74 L (80-97) fL MCH 22 L (27-31) pg MCHC 29 L (31-36) g/dl RDW 23 H (10.5-15) % Plt Count 157 (150-450) 10^3/ul MPV 9 (7.4-10.4) um3 Neut % (Auto) 64.4 (38-83) % Lymph % (Auto) 23.3 L (25-47) % [place] % (Auto) 9.9 H (1-9) % Eos % (Auto) 1.3 (0-6) % Baso % (Auto) 1.1 (0-2) % Absolute Neuts (auto) 4.1 (1.5-7.7) 10^3/ul Absolute Lymphs (auto) 1.5 (1.0-4.8) 10^3/ul Absolute Monos (auto) 0.6 (0-0.8) 10^3/ul Absolute Eos (auto) 0.1 (0-0.6) 10^3/ul Absolute Basos (auto) 0.1 (0-0.2) 10^3/ul Absolute Nucleated RBC 0.01 10^3/ul Nucleated RBC % 0.2 Patient Temperature ABG pH (7.35-7.45) ABG pCO2 (35-45) mmHg ABG pO2 (80-100) mmHg ABG HCO3 (19-31) mmol/L ABG O2 Saturation (95-98) % ABG Base Excess (-2.0-2.0) Respiration Rate Ventilator Type Vent Mode FiO2 Inspiratory Time PEEP Pressure Support Pressure Control EPAP IPAP BiPAP Sodium 138 (133-145) mmol/L Potassium 3.4 L (3.5-5.0) mmol/L Chloride 84 L (101-111) mmol/L Carbon Dioxide Pending Anion Gap Pending BUN 13 (6-24) mg/dL Creatinine 0.75 (0.51-0.95) mg/dL Est GFR ( Amer) 98.8 (>60) Est GFR (Non-Af Amer) 76.8 (>60) BUN/Creatinine Ratio 17.3 (8-20) Glucose 136 H (70-100) mg/dL Lactic Acid 1.4 (0.5-2.0) mmol/L Calcium 9.6 (8.6-10.3) mg/dL Magnesium 1.9 (1.9-2.7) mg/dL Total Bilirubin 2.20 H (0.2-1.0) mg/dL AST 15 (13-39) U/L ALT 6 L (7-52) U/L Alkaline Phosphatase 58 (34-104) U/L Total Creatine Kinase 10 (10-223) U/L Troponin I 0.04 H* (<0.04) ng/mL Total Protein 7.0 (6.4-8.9) g/dL Albumin 3.4 (3.2-5.2) g/dL Globulin 3.6 (2-4) g/dL Albumin/Globulin Ratio 0.9 L (1-3) 07/10/16 Range/Units 17:47 WBC (3.5-10.8) 10^3/ul RBC (4.0-5.4) 10^6/ul Hgb (12.0-16.0) g/dl Hct (35-47) % MCV (80-97) fL MCH (27-31) pg MCHC (31-36) g/dl RDW (10.5-15) % Plt Count (150-450) 10^3/ul MPV (7.4-10.4) um3 Neut % (Auto) (38-83) % Lymph % (Auto) (25-47) % [place] % (Auto) (1-9) % Eos % (Auto) (0-6) % Baso % (Auto) (0-2) % Absolute Neuts (auto) (1.5-7.7) 10^3/ul Absolute Lymphs (auto) (1.0-4.8) 10^3/ul Absolute Monos (auto) (0-0.8) 10^3/ul Absolute Eos (auto) (0-0.6) 10^3/ul Absolute Basos (auto) (0-0.2) 10^3/ul Absolute Nucleated RBC 10^3/ul Nucleated RBC % Patient Temperature Not Reportable ABG pH 7.42 (7.35-7.45) ABG pCO2 84 H* (35-45) mmHg ABG pO2 140 H (80-100) mmHg ABG HCO3 45.4 H* (19-31) mmol/L ABG O2 Saturation 99.8 H (95-98) % ABG Base Excess 26.2 H (-2.0-2.0) Respiration Rate Not Reportable Ventilator Type Not Reportable Vent Mode Not Reportable FiO2 12 Inspiratory Time Not Reportable PEEP Not Reportable Pressure Support Not Reportable Pressure Control Not Reportable EPAP Not Reportable IPAP Not Reportable BiPAP Not Reportable Sodium (133-145) mmol/L Potassium (3.5-5.0) mmol/L Chloride (101-111) mmol/L Carbon Dioxide Anion Gap BUN (6-24) mg/dL Creatinine (0.51-0.95) mg/dL Est GFR ( Amer) (>60) Est GFR (Non-Af Amer) (>60) BUN/Creatinine Ratio (8-20) Glucose (70-100) mg/dL Lactic Acid (0.5-2.0) mmol/L Calcium (8.6-10.3) mg/dL Magnesium (1.9-2.7) mg/dL Total Bilirubin (0.2-1.0) mg/dL AST (13-39) U/L ALT (7-52) U/L Alkaline Phosphatase (34-104) U/L Total Creatine Kinase (10-223) U/L Troponin I (<0.04) ng/mL Total Protein (6.4-8.9) g/dL Albumin (3.2-5.2) g/dL Globulin (2-4) g/dL Albumin/Globulin Ratio (1-3) Microbiology and Other Data: Microbiology 07/10/16 22:50 Nasal Screen MRSA (PCR)([facility]ASKIA) - Final Nasal Mrsa Positive Assess/Plan/Problems-Billing Ms Springer is a super morbidly obese female with a h/o chronic hypercarbic respiratory failure, type II DM, JOLEEN, hypothyroidism, h/o afib with SSS, HTN, HLD and GERD who presented to the ER with c/o low O2 saturations. - Patient Problems (1) Hypoxia Current Visit: Yes Status: Acute Code(s): R09.02 - HYPOXEMIA SNOMED Code(s ): 513994101 Comment: Pt has been on 50% FiO2 on BiPAP with saturations in the mid 90's. She is going onto [place] O2 now so she can eat. I have discussed her case with Dr. lAfaro who recommended CTA of the chest to eval for PE as this does not appear to have been ruled out at [facility]. She has remained on high dose oral diuretic therapy-her fluid status is difficult to determine. The CTA of the chest will also allow us to look at her lung parenchyma. (2) Chronic hypercapnic respiratory failure Current Visit: Yes Status: Acute Comment: The initial ABG from [facility] shows the patient to be hypercarbic with a low pH of 7.24. It appears she has now compensated as her pCO2 is higher and her pH is normal. ? being driven by respiratory status vs over diuresis and the developement of a contraction alkalosis. Dr. Alfaro will weigh in on her respiratory status and diuretic use. I am concerned about her going back to [facility] for rehab until her respiratory failure is figured out further. (3) CHF (congestive heart failure) Current Visit: Yes Status: Acute Code(s): I50.9 - HEART FAILURE, UNSPECIFIED SNOMED Code(s): 65950045 Comment: The patient had been on lasix 40mg daily prior to going to [facility] for treatment. While at [facility] the patient was treated for acute on chronic diastolic CHF by increasing her lasix to 80mg BID. Her weight is down 90lb in about 1 month. I question if she may be overdiuresed at this time. Dr. Alfaro is going to evaluate the patient and likely adjust her diuretic therapy (ie ? adding acetazolamide). (4) Elevated troponin Current Visit: Yes Status: Acute Code(s): R74.8 - ABNORMAL LEVELS OF OTHER SERUM ENZYMES SNOMED Code(s): 356487595 Comment: Likely related to demand ischemia from probable CHF. No further work up. Echo done previously at [facility] is limited due to the patient's habitus but EF was reportedly low normal. (5) Type II diabetes mellitus Current Visit: Yes Status: Acute Comment: Sugars are under good control. Continue current insulin regimen. (6) HTN (hypertension) Current Visit: Yes Status: Acute Code(s): I10 - ESSENTIAL (PRIMARY) HYPERTENSION SNOMED Code(s): 56817096 Comment: BP is under good control. Continue current medication regimen. (7) HLD (hyperlipidemia) Current Visit: Yes Status: Acute Code(s): E78.5 - HYPERLIPIDEMIA, UNSPECIFIED SNOMED Code(s): 83742811 Comment: She is not on any therapy specifically for hyperlipidemia. Follow as outpatient. (8) Hypothyroidism Current Visit: Yes Status: Acute Code(s): E03.9 - HYPOTHYROIDISM, UNSPECIFIED SNOMED Code(s): 98400285 Comment: Continue current dose of synthroid. TSH is still elevated- dose just adjusted last month. Follow up in a couple weeks. (9) Atrial fibrillation Current Visit: Yes Status: Acute Code(s): I48.91 - UNSPECIFIED ATRIAL FIBRILLATION SNOMED Code(s): 68574967 Comment: She is paced on tele. Continue metoprolol XL 25mg daily. INR remains mildy supratherapeutic. Will determine dose she was taking previously and adjust. (10) GERD (gastroesophageal reflux disease) Current Visit: Yes Status: Acute Code(s): K21.9 - GASTRO-ESOPHAGEAL REFLUX DISEASE WITHOUT ESOPHAGITIS SNOMED Code(s): 902110213 Comment: Continue protonix (11) DVT prophylaxis Current Visit: Yes Status: Acute Code(s): IZQ9178 - SNOMED Code(s): 031881530 Comment: supratherapeutic INR (12) Full code status Current Visit: Yes Status: Acute Code(s): Z78.9 - OTHER SPECIFIED HEALTH STATUS SNOMED Code(s): 637327184
[2016-07-12] MEDS: Pantoprazole TAB (NF) 20 MG TAB PO SCH (10:02)
[2016-07-12] MEDS ORDERED: Iodixanol* (CONTRAST) 320 MG/ML 100 ML SDV IV ONE (10:05)
--- NOTE | 2016-07-12 10:37 | CONSULT ---
Consult Consult: Consultation Note Critical Care Requesting Physician: Dr Annette Johns Reason for consult: hypercapneic respiratory failure Limitations in history/physical: none Date of consult: 07/12/2016 HPI: 70y F pmhx HTN, SSS/Atrial Fibrillation s/p PM on AC, DM, Hypothyroidism, LV diastolic dysfunction, discharged on 2L O2 from recent [facility]; Recent admission to [facility] for left hip pain after a fall, no fracture, then transferred to [facility] for respiratory distress, suspected diastolic heart failure, diuresed for 2-3 weeks. She was then transferred to [facility]. She presents with family for shortness of breath, low oxygen saturations of 60s at home, and no improvement with bipap and Lasix. Here in the ED she was placed on bipap and O2 sats improved. Admitted to the floor for pulmonary congestion and diastolic heart failure but developed some lethargy, repeat abg showing acute on chronic hypercapnea, upgraded to ICU. She is now in ICU on NC 4L, sat 97%, rr 16, HR 70s; no distress. states no cp/ sob/n/v/abd pain/headache/palpitations/pain/cough/fever/chills. She uses cpap at home for sleep apnea, but has been using it more often in the daytime since being admitted [facility], and now requires daytime use also. She has noticed loss of weight since being admitted [facility], making a lot of urine daily. ROS: All 14 ROS are negative except for pertinent positives/negatives mentioned above. PMHx: HTN, DM with neuropathy/gastroparesis, Hypothyroidism, LV diastolic dysfunction, Asthma, Morbid Obesity, Sich Sinus syndrome with Atrial Fibrillation, s/p Pacemaker; chronic hypoxia 2Liters o2. PSHx: Pacemaker implantation Family History: Hyperlipidemia in sister; heart disease in father/sister; alcohol abuse in brother; cancer of unknown type in mother. 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 Allergies: morphine (rash) Home Medications: Acetaminophen TAB* [Tylenol TAB*] 650 mg PO Q6H PRN 07/10/16 [History Confirmed 07/10/16] Albuterol 2.5MG/3ML (0.083%)* [Ventolin 2.5 MG/3 ML NEB.JOSE CRUZ*] 2.5 mg INH Q4H PRN 07/10/16 [History Confirmed 07/10/16] Albuterol HFA INHALER* [Ventolin HFA Inhaler*] 1 puff INH Q4H PRN 07/10/16 [ History Confirmed 07/10/16] Albuterol/Ipratropium NEB.JOSE CRUZ* [Duoneb (Albuterol 2.5 MG/Ipratropium 0.5 MG)] 1 neb INH Q4H PRN 07/10/16 [History Confirmed 07/10/16] Bisacodyl SUPP* [Dulcolax Supp*] 10 mg ND DAILY PRN 07/10/16 [History Confirmed 07/10/16] Calcium Carbonate CHEW TAB* [Tums*] 500 mg PO DAILY PRN 07/10/16 [History Confirmed 07/10/16] Cholecalciferol [Vitamin D] 4,000 unit PO DAILY 07/10/16 [History Confirmed ] Cyanocobalamin [Vitamin B-12] 100 mcg PO DAILY 07/10/16 [History Confirmed 07/10] Furosemide JOSE CRUZ* [Lasix JOSE CRUZ*] 80 mg PO ONCE PRN 07/10/16 [History Confirmed 07/10] Furosemide TAB* [Lasix TAB*] 40 mg PO ONCE 07/10/16 [History Confirmed 07/10/16] Furosemide TAB* [Lasix TAB*] 80 mg PO BID 07/10/16 [History Confirmed 07/10/16] Glucagon (Rdna) [Glucagon Emergency Kit] 1 mg IM ONCE PRN 07/10/16 [History Confirmed 07/10/16] Insulin GLARGINE(*) [Lantus(*)] 8 units SUBCUT BEDTIME 07/10/16 [History Confirmed 07/10/16] Lidocaine PATCH 5%* [Lidoderm 5% Patch*] 1 patch TRANSDERM DAILY 07/10/16 [ History Confirmed 07/10/16] Lisinopril [Lisinopril 2.5 MG-] 2.5 mg PO DAILY 07/10/16 [History Confirmed ] LoraTADine TAB(NF) [Claritin 10 MG TAB(NF)] 10 mg PO DAILY 07/10/16 [History Confirmed 07/10/16] Metoprolol Succinate XL TAB* [Toprol XL TAB*] 25 mg PO DAILY 07/10/16 [History Confirmed 07/10/16] Multivitamins/Minerals TAB* [Theragran/minerals TAB*] 1 tab PO DAILY 07/10/16 [ History Confirmed 07/10/16] Pantoprazole TAB (NF) [Protonix TAB (NF)] 20 mg PO DAILY 07/10/16 [History Confirmed 07/10/16] RX: Docusate CAP* [Colace Cap*] 100 mg PO BID 07/10/16 [History Confirmed ] RX: Ferrous Sulfate TAB* 325 mg PO DAILY 07/10/16 [History Confirmed 07/10/16] RX: Levothyroxine Sodium 400 mcg PO DAILY 07/10/16 [History Confirmed 07/10/16] Sennosides-Docusate Sodium [Senna-S 8.6-50 mg] 2 tab PO BEDTIME 07/10/16 [ History Confirmed 07/10/16] Tele: Atrial fibrillation, vpaced, ectopy noted. Vitals: Vital Signs Temp 98.4 F 07/12/16 10:49 Pulse 71 07/12/16 10:49 Resp 18 07/12/16 11:00 BP 84/57 07/12/16 11:03 Pulse Ox 93 07/12/16 10:49 Intake & Output 07/11/16 07/12/16 07/12/16 18:59 06:59 18:59 Intake Total 640 0 Output Total 1325 475 Balance -685 -475 Weight 415 lb 415 lb Intake: Oral 640 0 Output: Urine 200 Mclaughlin 1325 275 Other: Estimated Void Small Date of Last Bowel 07-12-16 Movement # Bowel Movements 1 Estimated Stool Amount Medium # Voids 1 O2/Vent: NC 4L, sat 97%, rr 16 Infusions: none Current Medications: Acetaminophen (Tylenol Tab*) 650 mg PO Q6H PRN PRN Reason: PAIN Last Admin: 07/11/16 13:54 Dose: 650 mg Albuterol (Ventolin 2.5 Mg/3 Ml Neb.Jose Cruz*) 2.5 mg INH Q4H PRN PRN Reason: WHEEZING Albuterol/Ipratropium (Duoneb (Albuterol 2.5 Mg/Ipratropium 0.5 Mg)) 1 neb INH Q4H PRN PRN Reason: SHORTNESS OF BREATH Bisacodyl (Dulcolax Supp*) 10 mg ND DAILY PRN PRN Reason: CONSTIPATION Calcium Carbonate (Tums*) 500 mg PO DAILY PRN PRN Reason: INDIGESTION Cetirizine HCl (Zyrtec*) 10 mg PO QPM [facility] Last Admin: 07/11/16 17:23 Dose: 10 mg Cholecalciferol (Vitamin D Tab*) 4,000 units PO DAILY [facility] Last Admin: 07/12/16 09:41 Dose: 4,000 units Cyanocobalamin (Vitamin B12 Tab*) 250 mcg PO DAILY [facility] Last Admin: 07/12/16 09:39 Dose: 250 mcg Dextrose (D50w Syringe 50 Ml*) 12.5 gm IV PUSH .FOR FS < 60 - SS PRN PRN Reason: FS < 60 Docusate Sodium (Colace Cap*) 100 mg PO BID [facility] Last Admin: 07/12/16 09:39 Dose: 100 mg Ferrous Sulfate (Ferrous Sulfate Tab*) 325 mg PO DAILY [facility] Last Admin: 07/12/16 09:39 Dose: 325 mg Furosemide (Lasix Tab*) 80 mg PO 0800,1800 [facility] Last Admin: 07/12/16 09:42 Dose: 80 mg Insulin Glargine (Lantus(*)) 8 units SUBCUT BEDTIME [facility] Last Admin: 07/11/16 21:41 Dose: 8 units Insulin Human Lispro (Humalog*) 0 units SUBCUT ACHS [facility] PRN Reason: Protocol Last Admin: 07/12/16 11:28 Dose: 2 units Levothyroxine Sodium (Synthroid Tab*) 400 mcg PO DAILY@0600 [facility] Last Admin: 07/12/16 06:12 Dose: 400 mcg Lidocaine (Lidoderm 5% Patch*) 1 patch TRANSDERM DAILY [facility] Last Admin: 07/12/16 09:27 Dose: 1 patch Lisinopril (Prinivil Tab*) 2.5 mg PO DAILY [facility] Last Admin: 07/12/16 09:40 Dose: 2.5 mg Metoprolol Succinate (Toprol Xl Tab*) 25 mg PO DAILY [facility] Last Admin: 07/12/16 09:42 Dose: 25 mg Multivitamins/Minerals (Theragran/Minerals Tab*) 1 tab PO DAILY [facility] Last Admin: 07/12/16 09:39 Dose: 1 tab Pantoprazole Sodium (Protonix Tab (Nf)) 20 mg PO DAILY [facility] Last Admin: 07/12/16 10:02 Dose: Not Given Pharmacy Profile Note (Lidocaine Patch Remove*) 1 note PATCH OFF 2100 [facility] Last Admin: 07/11/16 21:44 Dose: 1 note Senna (Senokot Tab*) 2 tab PO BEDTIME [facility] Last Admin: 07/11/16 21:52 Dose: Not Given Physical Exam: General: awake, alert, no distress, no diaphoresis, obese+ Head: normocephalic, atraumatic HEENT: no pallor, no icterus, moist mucous membranes Neck: no stridor, no jvd CVS: normal rate, normal rhythm, no murmur Resp: bilateral air entry w/ some dec bs on right posterior, bilateral +rhales, no wheeze, no rhonchi, no acc muscle use Abdomen: soft, nontender, nondistended, bowel sounds present, obese+ Ext: pulses+, warm; minimal/no edema in LE or upper ext Skin: dry skin, intact, LE old areas of breakdown which are healed completely now. Neuro: awake, alert, orientedx3, moving all extremities, no gross focal deficit Labs: 07/10/16 07/10/16 07/10/16 17:40 17:40 17:40 WBC 6.3 RBC 4.34 Hgb 9.3 L Hct 32 L MCV 74 L MCH 22 L MCHC 29 L RDW 23 H Plt Count 157 MPV 9 Neut % (Auto) 64.4 Lymph % (Auto) 23.3 L Lawrence % (Auto) 9.9 H Eos % (Auto) 1.3 Baso % (Auto) 1.1 Absolute Neuts (auto) 4.1 Absolute Lymphs (auto) 1.5 Absolute Monos (auto) 0.6 Absolute Eos (auto) 0.1 Absolute Basos (auto) 0.1 Absolute Nucleated RBC 0.01 Nucleated RBC % 0.2 Normal RBC Morphology Not Reportable Polychromasia 1+ Hypochromasia 3+ Microcytosis 1+ Macrocytosis 1+ Target Cells 1+ Stomatocytes 2+ Geo Cells 1+ INR (Anticoag Therapy) APTT Patient Temperature ABG pH ABG pCO2 ABG pO2 ABG HCO3 ABG O2 Saturation ABG Base Excess Respiration Rate O2 Delivery Device Ventilator Type Vent Mode FiO2 Inspiratory Time PEEP Pressure Support Pressure Control EPAP IPAP BiPAP Sodium 138 Potassium 3.4 L Chloride 84 L Carbon Dioxide 45 H* Anion Gap 9 BUN 13 Creatinine 0.75 Est GFR ( Amer) 98.8 Est GFR (Non-Af Amer) 76.8 BUN/Creatinine Ratio 17.3 Glucose 136 H POC Glucose (mg/dL) Lactic Acid 1.4 Calcium 9.6 Magnesium 1.9 Total Bilirubin 2.20 H AST 15 ALT 6 L Alkaline Phosphatase 58 Total Creatine Kinase 10 Troponin I 0.04 H* B-Natriuretic Peptide Total Protein 7.0 Albumin 3.4 Globulin 3.6 Albumin/Globulin Ratio 0.9 L [facility] 07/10/16 07/10/16 07/10/16 17:40 17:40 17:47 WBC RBC Hgb Hct MCV MCH MCHC RDW Plt Count MPV Neut % (Auto) Lymph % (Auto) Lawrence % (Auto) Eos % (Auto) Baso % (Auto) Absolute Neuts (auto) Absolute Lymphs (auto) Absolute Monos (auto) Absolute Eos (auto) Absolute Basos (auto) Absolute Nucleated RBC Nucleated RBC % Normal RBC Morphology Polychromasia Hypochromasia Microcytosis Macrocytosis Target Cells Stomatocytes Geo Cells INR (Anticoag Therapy) 3.99 H APTT 56.0 H Patient Temperature Not Reportable ABG pH 7.42 ABG pCO2 84 H* ABG pO2 140 H ABG HCO3 45.4 H* ABG O2 Saturation 99.8 H ABG Base Excess 26.2 H Respiration Rate Not Reportable O2 Delivery Device Ventilator Type Not Reportable Vent Mode Not Reportable FiO2 12 Inspiratory Time Not Reportable PEEP Not Reportable Pressure Support Not Reportable Pressure Control Not Reportable EPAP Not Reportable IPAP Not Reportable BiPAP Not Reportable Sodium Potassium Chloride Carbon Dioxide Anion Gap BUN Creatinine Est GFR ( Amer) Est GFR (Non-Af Amer) BUN/Creatinine Ratio Glucose POC Glucose (mg/dL) Lactic Acid Calcium Magnesium Total Bilirubin AST ALT Alkaline Phosphatase Total Creatine Kinase Troponin I B-Natriuretic Peptide 244 H Total Protein Albumin Globulin Albumin/Globulin Ratio [facility] 07/10/16 07/10/16 07/11/16 21:50 21:58 02:25 WBC RBC Hgb Hct MCV MCH MCHC RDW Plt Count MPV Neut % (Auto) Lymph % (Auto) Lawrence % (Auto) Eos % (Auto) Baso % (Auto) Absolute Neuts (auto) Absolute Lymphs (auto) Absolute Monos (auto) Absolute Eos (auto) Absolute Basos (auto) Absolute Nucleated RBC Nucleated RBC % Normal RBC Morphology Polychromasia Hypochromasia Microcytosis Macrocytosis Target Cells Stomatocytes Geo Cells INR (Anticoag Therapy) APTT Patient Temperature ABG pH ABG pCO2 ABG pO2 ABG HCO3 ABG O2 Saturation ABG Base Excess Respiration Rate O2 Delivery Device Ventilator Type Vent Mode FiO2 Inspiratory Time PEEP Pressure Support Pressure Control EPAP IPAP BiPAP Sodium 139 Potassium 3.2 L Chloride 84 L Carbon Dioxide 46 H* Anion Gap 9 BUN 12 Creatinine 0.74 Est GFR ( Amer) 100.4 Est GFR (Non-Af Amer) 78.0 BUN/Creatinine Ratio 16.2 Glucose 113 H POC Glucose (mg/dL) 151 H Lactic Acid Calcium 9.2 Magnesium Total Bilirubin AST ALT Alkaline Phosphatase Total Creatine Kinase Troponin I 0.04 H* 0.04 H* B-Natriuretic Peptide Total Protein Albumin Globulin Albumin/Globulin Ratio TSH 07/11/16 07/11/16 07/11/16 07:41 10:15 12:04 WBC RBC Hgb Hct MCV MCH MCHC RDW Plt Count MPV Neut % (Auto) Lymph % (Auto) Lawrence % (Auto) Eos % (Auto) Baso % (Auto) Absolute Neuts (auto) Absolute Lymphs (auto) Absolute Monos (auto) Absolute Eos (auto) Absolute Basos (auto) Absolute Nucleated RBC Nucleated RBC % Normal RBC Morphology Polychromasia Hypochromasia Microcytosis Macrocytosis Target Cells Stomatocytes Geo Cells INR (Anticoag Therapy) APTT Patient Temperature Not Reportable ABG pH 7.41 ABG pCO2 89 H* ABG pO2 110 H ABG HCO3 46.7 H* ABG O2 Saturation 99.1 H ABG Base Excess 27.9 H Respiration Rate Not Reportable O2 Delivery Device 6 lnc Ventilator Type Not Reportable Vent Mode Not Reportable FiO2 50 Inspiratory Time Not Reportable PEEP Not Reportable Pressure Support Not Reportable Pressure Control Not Reportable EPAP Not Reportable IPAP Not Reportable BiPAP Not Reportable Sodium Potassium Chloride Carbon Dioxide Anion Gap BUN Creatinine Est GFR ( Amer) Est GFR (Non-Af Amer) BUN/Creatinine Ratio Glucose POC Glucose (mg/dL) 127 H 155 H Lactic Acid Calcium Magnesium Total Bilirubin AST ALT Alkaline Phosphatase Total Creatine Kinase Troponin I B-Natriuretic Peptide Total Protein Albumin Globulin Albumin/Globulin Ratio [facility] 07/11/16 07/11/16 07/11/16 16:42 21:08 21:47 WBC RBC Hgb Hct MCV MCH MCHC RDW Plt Count MPV Neut % (Auto) Lymph % (Auto) Lawrence % (Auto) Eos % (Auto) Baso % (Auto) Absolute Neuts (auto) Absolute Lymphs (auto) Absolute Monos (auto) Absolute Eos (auto) Absolute Basos (auto) Absolute Nucleated RBC Nucleated RBC % Normal RBC Morphology Polychromasia Hypochromasia Microcytosis Macrocytosis Target Cells Stomatocytes Geo Cells INR (Anticoag Therapy) APTT Patient Temperature Not Reportable ABG pH 7.40 ABG pCO2 106 H* ABG pO2 86 ABG HCO3 53.0 H* ABG O2 Saturation 98.4 H ABG Base Excess 36.0 H Respiration Rate Not Reportable O2 Delivery Device Ventilator Type Not Reportable Vent Mode Not Reportable FiO2 50 Inspiratory Time Not Reportable PEEP Not Reportable Pressure Support Not Reportable Pressure Control Not Reportable EPAP 8 IPAP 15 BiPAP Y Sodium Potassium Chloride Carbon Dioxide Anion Gap BUN Creatinine Est GFR ( Amer) Est GFR (Non-Af Amer) BUN/Creatinine Ratio Glucose POC Glucose (mg/dL) 151 H 168 H Lactic Acid Calcium Magnesium Total Bilirubin AST ALT Alkaline Phosphatase Total Creatine Kinase Troponin I B-Natriuretic Peptide Total Protein Albumin Globulin Albumin/Globulin Ratio [facility] 07/12/16 07/12/16 07/12/16 04:44 04:44 04:44 WBC 5.4 RBC 3.72 L Hgb 8.1 L Hct 28 L MCV 74 L MCH 22 L MCHC 29 L RDW 23 H Plt Count 137 L MPV 9 Neut % (Auto) Lymph % (Auto) Lawrence % (Auto) Eos % (Auto) Baso % (Auto) Absolute Neuts (auto) Absolute Lymphs (auto) Absolute Monos (auto) Absolute Eos (auto) Absolute Basos (auto) Absolute Nucleated RBC Nucleated RBC % Normal RBC Morphology Polychromasia Hypochromasia Microcytosis Macrocytosis Target Cells Stomatocytes [place] Cells INR (Anticoag Therapy) 3.11 H APTT Patient Temperature ABG pH ABG pCO2 ABG pO2 ABG HCO3 ABG O2 Saturation ABG Base Excess Respiration Rate O2 Delivery Device Ventilator Type Vent Mode FiO2 Inspiratory Time PEEP Pressure Support Pressure Control EPAP IPAP BiPAP Sodium 139 Potassium 3.3 L Chloride 86 L Carbon Dioxide 48 H* Anion Gap 5 BUN 13 Creatinine 0.76 Est GFR ( Amer) 97.3 Est GFR (Non-Af Amer) 75.7 BUN/Creatinine Ratio 17.1 Glucose 108 H POC Glucose (mg/dL) Lactic Acid Calcium 9.0 Magnesium Total Bilirubin AST ALT Alkaline Phosphatase Total Creatine Kinase Troponin I B-Natriuretic Peptide Total Protein Albumin Globulin Albumin/Globulin Ratio TSH 8.50 H 07/12/16 07/12/16 07:33 11:17 WBC RBC Hgb Hct MCV MCH MCHC RDW Plt Count MPV Neut % (Auto) Lymph % (Auto) Lawrence % (Auto) Eos % (Auto) Baso % (Auto) Absolute Neuts (auto) Absolute Lymphs (auto) Absolute Monos (auto) Absolute Eos (auto) Absolute Basos (auto) Absolute Nucleated RBC Nucleated RBC % Normal RBC Morphology Polychromasia Hypochromasia Microcytosis Macrocytosis Target Cells Stomatocytes Geo Cells INR (Anticoag Therapy) APTT Patient Temperature ABG pH ABG pCO2 ABG pO2 ABG HCO3 ABG O2 Saturation ABG Base Excess Respiration Rate O2 Delivery Device Ventilator Type Vent Mode FiO2 Inspiratory Time PEEP Pressure Support Pressure Control EPAP IPAP BiPAP Sodium Potassium Chloride Carbon Dioxide Anion Gap BUN Creatinine Est GFR ( Amer) Est GFR (Non-Af Amer) BUN/Creatinine Ratio Glucose POC Glucose (mg/dL) 129 H 133 H Lactic Acid Calcium Magnesium Total Bilirubin AST ALT Alkaline Phosphatase Total Creatine Kinase Troponin I B-Natriuretic Peptide Total Protein Albumin Globulin Albumin/Globulin Ratio TSH Imaging: EKG 07/10 atrial fibrillation, Vpaced, ectopy noted. CXR 07/10 cardiomegaly, pulm vasc congestion+, pacemaker leads+, no pleural effusion/infiltrate/ptx CT chest (PE protocol) 07/12 - no PE, pulmonary congestion+ consistent with CHF, right moderate pleural effusion+, ascities+ Assessment: 70y F pmhx HTN, SSS/Atrial Fibrillation s/p PM on AC, DM, Hypothyroidism, LV diastolic dysfunction; recent admission to [facility] for respiratory failure, diastolic heart failure; now admitted for hypoxia, pulm congestion, hypercapnea/lethargy. -Acute on Chronic Hypoxic Respiratory Failure -Acute on Chronic Hypercapneic Respiratory Failure; compensated -Compensated Metabolic Alkalosis 2/2 to diuretics -Pulmonary Congestion -Right moderate pleural effusion -Acute on chronic decompensated LV diastolic Heart failure -Atrial Fibrillation, on AC -Morbid obesity -Obesity hypoventilation/JOLEEN Plan: Neuro- stable CVS- cont Lopressor and Lisinopril po. Volume overload noted on imaging and lung exam; not much extremity edema. Has been on diuretics for diastolic heart failure. Noted increased serum bicarbarb, likely from chronic diuretic therapy. This may be contributing to her increase PCO2 levels and compensating. Would like to start Diamox iv 500mg daily x2 days, then skip a day, as to make sure she doesnt loose efficacy. Alternate day dosing or 2on/1off can be tried. Hold Lasix today. Goal neg output, Start at 500mg iv daily given patient size. Warfarin for Atrial fibrillation,target INR 2-3. Resp- Pulmonary congestion+. CTA done today, negative for PE, +pulm congestion, no pneumonia, Moderate right pleural effusion+. No smoking history, unlikely to be COPD underlying. Need to obtain previous Abgs. I suspected a chronic/ compensated hypercapnea due to ongoing metabolic alkalosis 2/2 diuretics. Switch diuretics to acetazolamide to augment urine output and remove bicarb in attempt to start normalizing pCO2 levels. On NC now, Bipap at night and as needed during the daytime. Repeat ABG in AM. No urgent indication for thoracentesis on right; will re-eval tomorrow or wednesday, or if further resp distress. currently in no distress. Hold warfarin tonight, will have colleague in AM decide about timing of thoracentesis, if indicated. ID- wbc normal, afebrile. No indication for abx. GI- morbidly obese. Cardiac diet, fluid restriction. GI prophylaxis. Renal- Normal renal function. Replete K to keep >=4, especially with ongoing diuresis. Check Mag level in AM. Change diuretics to acetazolamide 500mg iv daily x2 days and re-eval response and serum bicarb levels, check ABG in AM. Heme- anemia, stable, no bleeding. Platelet count stable/normal. On Warfarin for Afib, INR goal 2-3. Endo- cont synthroid po. On lantus/reg insulin, target BS <200. Musculsk- obese. Bed rest now. Pressure ulcer prophylaxis. Wounds- none Nutrition- diabetic diet, fluid restriction for now. DVT prophylaxis: warfarin GI prophylaxis: PPI Central Line: no Arterial Line: no Mclaughlin Cathetor: yes Disposition: upgraded to ICU lethargy, hypercapnea Code Status: full code Total Critical Care time is 50 minutes, excluding procedures/teaching Luis Alfaro MD Director Pharmacology (Electronically Signed)
--- NOTE | 2016-07-12 11:05 | RAD ---
INDICATION: Respiratory distress evaluate for pulmonary embolism. COMPARISON: Comparison is made with prior chest x-ray study from July 10, 2016. TECHNIQUE: A CT angiogram of the chest was performed with intravenous following intravenous injection of 96 ml of Visipaque 320 nonionic contrast. Contiguous axial sections were obtained from the lung apices through the lung bases. Images were reconstructed in the coronal and sagittal planes. FINDINGS: There is motion artifact which is most prominent in the lower lobes limited evaluation of the basilar segmental arteries. No intraluminal filling defect or pulmonary embolism is seen. There is enlargement of the central pulmonary arteries suggestive of pulmonary artery hypertension. The heart is moderately enlarged. No pericardial effusion is present. The thoracic aorta is normal in caliber and demonstrates homogeneous contrast opacification. No significant enlarged mediastinal or hilar lymph nodes are seen. There is a moderate size right pleural effusion and a trace left pleural effusion. There are bilateral groundglass infiltrates present in the upper and lower lobes and dependent bilateral lower lobe confluent infiltrates most consistent with atelectasis. Images of the upper abdomen demonstrate fluid adjacent to the lateral aspect of the liver consistent with ascites. No significant focal osseous abnormality is seen. IMPRESSION: 1. LIMITED STUDY, NO PULMONARY EMBOLISM IS SEEN. 2. FINDINGS MOST CONSISTENT WITH CONGESTIVE HEART FAILURE LESS LIKELY PNEUMONIA. 3. ASCITES.
[2016-07-12] MEDS: oxyCODONE TAB* 5 MG TAB PO PRN ×2 (12:31→18:29)
[2016-07-12] MEDS ORDERED: Warfarin TAB(*) 5 MG PO ONE (17:00)
[2016-07-12] MEDS: Cetirizine* 10 MG TAB PO SCH (17:39)
[2016-07-12] MEDS: acetaZOLAMIDE VIAL* 500 MG in NS 0.9% 50 ML* 50 ML IVPB SCH (18:11)
[2016-07-12] MEDS: Insulin GLARGINE(*) 1 UNITS UNIT SUBCUT SCH (21:59)
[2016-07-12] MEDS: Senna TAB PO SCH (22:24)
[2016-07-12] MEDS: Lidocaine Patch REMOVE* 1 NOTE MISC PATCH OFF SCH (22:24)
[2016-07-13] MEDS: Omeprazole CAP* 20 MG PO SCH (05:53)
[2016-07-13] MEDS: Levothyroxine TAB* 100 MCG TAB PO SCH (05:53)
[2016-07-13 06:00] LABS: Hematocrit 31 % (35-47); Hemoglobin 8.6 g/dl (12.0-16.0); Mean Corpuscular HGB Conc 28 g/dl (31-36); Mean Corpuscular Hemoglobin 22 pg (27-31); Mean Corpuscular Volume 76 fL (80-97); Mean Platelet Volume 10 um3 (7.4-10.4); Red Blood Count 3.99 10^6/ul (4.0-5.4)
[2016-07-13 06:05] LABS: Comments Flag Yes
[2016-07-13 06:06] LABS: Red Cell Distribution Width 23 % (10.5-15)
[2016-07-13 06:18] LABS: BUN/Creatinine Ratio 16.3 (8-20); Calcium 9.3 mg/dL (8.6-10.3); EGFR African American 72.6 (>60); EGFR Non-African American 56.4 (>60)
[2016-07-13] MEDS: Insulin LISPRO* 1 UNITS UNIT SUBCUT SCH ×4 (08:30→21:03)
[2016-07-13] MEDS: Multivitamins/Minerals TAB PO SCH (09:08)
[2016-07-13] MEDS: Cholecalciferol TAB* 1000 UNITS PO SCH (09:08)
[2016-07-13] MEDS: Lisinopril TAB* 5 MG PO SCH (09:09)
[2016-07-13] MEDS: Cyanocobalamin TAB* 500 MCG PO SCH (09:09)
[2016-07-13] MEDS: Ferrous Sulfate TAB* 325 MG PO SCH (09:09)
[2016-07-13] MEDS: oxyCODONE TAB* 5 MG TAB PO PRN ×2 (09:10→18:16)
[2016-07-13] MEDS: Docusate CAP* 100 MG PO SCH ×2 (09:10→21:04)
[2016-07-13] MEDS: Metoprolol Succinate XL TAB* 25 MG PO SCH (09:10)
[2016-07-13] MEDS: acetaZOLAMIDE VIAL* 500 MG in NS 0.9% 50 ML* 50 ML IVPB SCH (09:11)
[2016-07-13] MEDS: Lidocaine PATCH 5%* 1 PATCH TRANSDERM SCH (10:03)
[2016-07-13 10:59] LABS: FIO2 3
[2016-07-13 11:10] LABS: PCO2 Arterial 107 mmHg (35-45)
--- NOTE | 2016-07-13 11:20 | PN ---
Subjective Date of Service: 07/13/16 Interval History: Pt is feeling ok. Sleepy currently as she was just rolled around in bed quite a bit to get cleaned up. She denies any pain or SOB. Objective Active Medications: Acetaminophen (Tylenol Tab*) 650 mg PO Q6H PRN PRN Reason: PAIN Last Admin: 07/11/16 13:54 Dose: 650 mg Albuterol (Ventolin 2.5 Mg/3 Ml Neb.Carol*) 2.5 mg INH Q4H PRN PRN Reason: WHEEZING Albuterol/Ipratropium (Duoneb (Albuterol 2.5 Mg/Ipratropium 0.5 Mg)) 1 neb INH Q4H PRN PRN Reason: SHORTNESS OF BREATH Bisacodyl (Dulcolax Supp*) 10 mg MI DAILY PRN PRN Reason: CONSTIPATION Calcium Carbonate (Tums*) 500 mg PO DAILY PRN PRN Reason: INDIGESTION Cetirizine HCl (Zyrtec*) 10 mg PO QPM [facility] Last Admin: 07/12/16 17:39 Dose: 10 mg Cholecalciferol (Vitamin D Tab*) 4,000 units PO DAILY [facility] Last Admin: 07/13/16 09:08 Dose: 4,000 units Cyanocobalamin (Vitamin B12 Tab*) 250 mcg PO DAILY [facility] Last Admin: 07/13/16 09:09 Dose: 250 mcg Dextrose (D50w Syringe 50 Ml*) 12.5 gm IV PUSH .FOR FS < 60 - SS PRN PRN Reason: FS < 60 Docusate Sodium (Colace Cap*) 100 mg PO BID [facility] Last Admin: 07/13/16 09:10 Dose: 100 mg Ferrous Sulfate (Ferrous Sulfate Tab*) 325 mg PO DAILY [facility] Last Admin: 07/13/16 09:09 Dose: 325 mg Insulin Glargine (Lantus(*)) 8 units SUBCUT BEDTIME [facility] Last Admin: 07/12/16 21:59 Dose: 8 units Insulin Human Lispro (Humalog*) 0 units SUBCUT ACHS [facility] PRN Reason: Protocol Last Admin: 07/13/16 08:30 Dose: Not Given Levothyroxine Sodium (Synthroid Tab*) 400 mcg PO DAILY@0600 [facility] Last Admin: 07/13/16 05:53 Dose: 400 mcg Lidocaine (Lidoderm 5% Patch*) 1 patch TRANSDERM DAILY [facility] Last Admin: 07/13/16 10:03 Dose: 1 patch Lisinopril (Prinivil Tab*) 2.5 mg PO DAILY [facility] Last Admin: 07/13/16 09:09 Dose: 2.5 mg Metoprolol Succinate (Toprol Xl Tab*) 25 mg PO DAILY [facility] Last Admin: 07/13/16 09:10 Dose: 25 mg Multivitamins/Minerals (Theragran/Minerals Tab*) 1 tab PO DAILY [facility] Last Admin: 07/13/16 09:08 Dose: 1 tab Omeprazole (Prilosec Cap*) 20 mg PO 0600 [facility] Last Admin: 07/13/16 05:53 Dose: 20 mg Oxycodone HCl (Roxycodone Tab*) 5 mg PO Q6H PRN PRN Reason: PAIN - MODERATE Last Admin: 07/13/16 09:10 Dose: 5 mg Pharmacy Profile Note (Lidocaine Patch Remove*) 1 note PATCH OFF 2100 [facility] Last Admin: 07/12/16 22:24 Dose: 1 note Pharmacy Profile Note (Coumadin Daily Reminder*) 1 note FOLLOW UP 1700 [facility] Last Admin: 07/12/16 19:14 Dose: 1 note Senna (Senokot Tab*) 2 tab PO BEDTIME [facility] Last Admin: 07/12/16 22:24 Dose: 2 tab Vital Signs 07/12/16 07/12/16 07/12/16 11:30 11:45 11:56 Temperature Pulse Rate 72 70 Respiratory 19 21 20 Rate Blood Pressure 105/59 118/51 (mmHg) O2 Sat by Pulse 94 93 Oximetry 07/12/16 07/12/16 07/12/16 12:00 12:15 12:30 Temperature 97.7 F Pulse Rate 70 70 70 Respiratory 18 17 21 Rate Blood Pressure 90/41 91/40 91/40 (mmHg) O2 Sat by Pulse 93 96 97 Oximetry 07/12/16 07/12/16 07/12/16 12:45 13:00 13:15 Temperature Pulse Rate 70 70 71 Respiratory 17 20 17 Rate Blood Pressure 102/71 98/47 113/49 (mmHg) O2 Sat by Pulse 96 94 94 Oximetry 07/12/16 07/12/16 07/12/16 13:30 13:45 14:00 Temperature Pulse Rate 71 71 71 Respiratory 18 18 17 Rate Blood Pressure 97/43 96/48 93/48 (mmHg) O2 Sat by Pulse 95 95 94 Oximetry 07/12/16 07/12/16 07/12/16 14:15 14:30 14:45 Temperature Pulse Rate 72 70 72 Respiratory 16 16 19 Rate Blood Pressure 96/46 106/52 105/46 (mmHg) O2 Sat by Pulse 97 96 96 Oximetry 07/12/16 07/12/16 07/12/16 15:00 15:07 15:15 Temperature 98.2 F Pulse Rate 72 70 Respiratory 18 20 Rate Blood Pressure 99/41 98/40 (mmHg) O2 Sat by Pulse 96 97 Oximetry 07/12/16 07/12/16 07/12/16 15:30 16:00 17:00 Temperature Pulse Rate 71 71 71 Respiratory 25 17 18 Rate Blood Pressure 114/63 106/63 68/27 (mmHg) O2 Sat by Pulse 96 97 96 Oximetry 07/12/16 07/12/16 07/12/16 17:05 18:00 19:00 Temperature Pulse Rate 71 71 90 Respiratory 17 16 21 Rate Blood Pressure 112/37 112/57 113/45 (mmHg) O2 Sat by Pulse 96 96 93 Oximetry 07/12/16 07/12/16 07/12/16 20:00 21:00 21:58 Temperature 97.1 F Pulse Rate 70 71 72 Respiratory 14 16 17 Rate Blood Pressure 105/43 109/51 (mmHg) O2 Sat by Pulse 94 94 100 Oximetry 07/12/16 07/12/16 07/12/16 22:00 23:00 23:39 Temperature Pulse Rate 70 72 73 Respiratory 15 13 13 Rate Blood Pressure 123/48 142/81 (mmHg) O2 Sat by Pulse 99 100 100 Oximetry 07/13/16 07/13/16 07/13/16 00:00 00:02 01:00 Temperature 98.1 F Pulse Rate 72 72 71 Respiratory 12 12 15 Rate Blood Pressure 159/81 (mmHg) O2 Sat by Pulse 99 99 100 Oximetry 07/13/16 07/13/16 07/13/16 01:24 01:26 01:29 Temperature Pulse Rate 70 71 71 Respiratory 13 14 14 Rate Blood Pressure 105/37 103/35 (mmHg) O2 Sat by Pulse 99 99 99 Oximetry 07/13/16 07/13/16 07/13/16 02:00 03:00 04:00 Temperature 97.9 F Pulse Rate 70 70 71 Respiratory 11 11 14 Rate Blood Pressure 94/33 93/28 96/27 (mmHg) O2 Sat by Pulse 99 98 99 Oximetry 07/13/16 07/13/16 07/13/16 04:15 04:21 04:26 Temperature Pulse Rate 71 70 70 Respiratory 15 12 18 Rate Blood Pressure 99/55 74/32 117/52 (mmHg) O2 Sat by Pulse 100 100 100 Oximetry 07/13/16 07/13/16 07/13/16 05:00 06:00 07:00 Temperature Pulse Rate 70 71 70 Respiratory 20 16 12 Rate Blood Pressure 105/61 118/62 80/56 (mmHg) O2 Sat by Pulse 100 99 100 Oximetry 07/13/16 07/13/16 07/13/16 07:05 07:10 08:00 Temperature 97.1 F Pulse Rate 70 72 Respiratory 13 15 Rate Blood Pressure 91/65 111/97 (mmHg) O2 Sat by Pulse 100 96 Oximetry 07/13/16 07/13/16 07/13/16 09:00 10:00 11:00 Temperature Pulse Rate 71 70 73 Respiratory 16 17 13 Rate Blood Pressure 129/77 112/47 119/48 (mmHg) O2 Sat by Pulse 94 93 100 Oximetry Oxygen Devices in Use Now: Nasal Cannula - 3L-100% Appearance: Super morbidly obese female lying in bed, NAD Eyes: No Scleral Icterus Ears/Nose/Mouth/Throat: Mucous Membranes Moist Respiratory: Symmetrical Chest Expansion and Respiratory Effort, Clear to Auscultation - anteriorly Cardiovascular: NL Sounds; No Murmurs; No JVD, RRR, No Edema Abdominal: NL Sounds; No Tenderness; No Distention Extremities: No Clubbing, Cyanosis Skin: No Nodules or Sclerosis, - - ulceration to R lateral lower leg not inspected today Neurological: - - awake but sleepy Result Diagrams: 07/13/16 05:50 07/13/16 05:50 Additional Lab and Data: Lab Results 07/10/16 07/10/16 07/10/16 Range/Units 17:40 17:40 17:40 WBC 6.3 (3.5-10.8) 10^3/ul RBC 4.34 (4.0-5.4) 10^6/ul Hgb 9.3 L (12.0-16.0) g/dl Hct 32 L (35-47) % MCV 74 L (80-97) fL MCH 22 L (27-31) pg MCHC 29 L (31-36) g/dl RDW 23 H (10.5-15) % Plt Count 157 (150-450) 10^3/ul MPV 9 (7.4-10.4) um3 Neut % (Auto) 64.4 (38-83) % Lymph % (Auto) 23.3 L (25-47) % Jackson % (Auto) 9.9 H (1-9) % Eos % (Auto) 1.3 (0-6) % Baso % (Auto) 1.1 (0-2) % Absolute Neuts (auto) 4.1 (1.5-7.7) 10^3/ul Absolute Lymphs (auto) 1.5 (1.0-4.8) 10^3/ul Absolute Monos (auto) 0.6 (0-0.8) 10^3/ul Absolute Eos (auto) 0.1 (0-0.6) 10^3/ul Absolute Basos (auto) 0.1 (0-0.2) 10^3/ul Absolute Nucleated RBC 0.01 10^3/ul Nucleated RBC % 0.2 Patient Temperature ABG pH (7.35-7.45) ABG pCO2 (35-45) mmHg ABG pO2 (80-100) mmHg ABG HCO3 (19-31) mmol/L ABG O2 Saturation (95-98) % ABG Base Excess (-2.0-2.0) Respiration Rate Ventilator Type Vent Mode FiO2 Inspiratory Time PEEP Pressure Support Pressure Control EPAP IPAP BiPAP Sodium 138 (133-145) mmol/L Potassium 3.4 L (3.5-5.0) mmol/L Chloride 84 L (101-111) mmol/L Carbon Dioxide Pending Anion Gap Pending BUN 13 (6-24) mg/dL Creatinine 0.75 (0.51-0.95) mg/dL Est GFR ( Amer) 98.8 (>60) Est GFR (Non-Af Amer) 76.8 (>60) BUN/Creatinine Ratio 17.3 (8-20) Glucose 136 H (70-100) mg/dL Lactic Acid 1.4 (0.5-2.0) mmol/L Calcium 9.6 (8.6-10.3) mg/dL Magnesium 1.9 (1.9-2.7) mg/dL Total Bilirubin 2.20 H (0.2-1.0) mg/dL AST 15 (13-39) U/L ALT 6 L (7-52) U/L Alkaline Phosphatase 58 (34-104) U/L Total Creatine Kinase 10 (10-223) U/L Troponin I 0.04 H* (<0.04) ng/mL Total Protein 7.0 (6.4-8.9) g/dL Albumin 3.4 (3.2-5.2) g/dL Globulin 3.6 (2-4) g/dL Albumin/Globulin Ratio 0.9 L (1-3) 07/10/16 Range/Units 17:47 WBC (3.5-10.8) 10^3/ul RBC (4.0-5.4) 10^6/ul Hgb (12.0-16.0) g/dl Hct (35-47) % MCV (80-97) fL MCH (27-31) pg MCHC (31-36) g/dl RDW (10.5-15) % Plt Count (150-450) 10^3/ul MPV (7.4-10.4) um3 Neut % (Auto) (38-83) % Lymph % (Auto) (25-47) % Jackson % (Auto) (1-9) % Eos % (Auto) (0-6) % Baso % (Auto) (0-2) % Absolute Neuts (auto) (1.5-7.7) 10^3/ul Absolute Lymphs (auto) (1.0-4.8) 10^3/ul Absolute Monos (auto) (0-0.8) 10^3/ul Absolute Eos (auto) (0-0.6) 10^3/ul Absolute Basos (auto) (0-0.2) 10^3/ul Absolute Nucleated RBC 10^3/ul Nucleated RBC % Patient Temperature Not Reportable ABG pH 7.42 (7.35-7.45) ABG pCO2 84 H* (35-45) mmHg ABG pO2 140 H (80-100) mmHg ABG HCO3 45.4 H* (19-31) mmol/L ABG O2 Saturation 99.8 H (95-98) % ABG Base Excess 26.2 H (-2.0-2.0) Respiration Rate Not Reportable Ventilator Type Not Reportable Vent Mode Not Reportable FiO2 12 Inspiratory Time Not Reportable PEEP Not Reportable Pressure Support Not Reportable Pressure Control Not Reportable EPAP Not Reportable IPAP Not Reportable BiPAP Not Reportable Sodium (133-145) mmol/L Potassium (3.5-5.0) mmol/L Chloride (101-111) mmol/L Carbon Dioxide Anion Gap BUN (6-24) mg/dL Creatinine (0.51-0.95) mg/dL Est GFR ( Amer) (>60) Est GFR (Non-Af Amer) (>60) BUN/Creatinine Ratio (8-20) Glucose (70-100) mg/dL Lactic Acid (0.5-2.0) mmol/L Calcium (8.6-10.3) mg/dL Magnesium (1.9-2.7) mg/dL Total Bilirubin (0.2-1.0) mg/dL AST (13-39) U/L ALT (7-52) U/L Alkaline Phosphatase (34-104) U/L Total Creatine Kinase (10-223) U/L Troponin I (<0.04) ng/mL Total Protein (6.4-8.9) g/dL Albumin (3.2-5.2) g/dL Globulin (2-4) g/dL Albumin/Globulin Ratio (1-3) Microbiology and Other Data: Microbiology 07/10/16 22:50 Nasal Screen MRSA (PCR)([facility]) - Final Nasal Mrsa Positive Assess/Plan/Problems-Billing Ms Springer is a super morbidly obese female with a h/o chronic hypercarbic respiratory failure, type II DM, JOLEEN, hypothyroidism, h/o afib with SSS, HTN, HLD and GERD who presented to the ER with c/o low O2 saturations. - Patient Problems (1) Hypoxia Current Visit: Yes Status: Acute Code(s): R09.02 - HYPOXEMIA SNOMED Code(s ): 015278050 Comment: Hypoxia appears to have resolved. Continue low dose supplemental O2. CTA negative for PE. She does have a R pleural effusion though no need to tap at this time. (2) Chronic hypercapnic respiratory failure Current Visit: Yes Status: Acute Comment: Pt remains hypercarbic with a pCO2 of 107 today-her pH is lower ? secondary to acetazolamide. Will need to continue to follow. Continue BiPAP with sleep and as needed. She should remain at [facility] until stabilized or she will likely bounce right back from [facility]. (3) CHF (congestive heart failure) Current Visit: Yes Status: Acute Code(s): I50.9 - HEART FAILURE, UNSPECIFIED SNOMED Code(s): 24337880 Comment: I believe the patient is like euvolemic to perhaps slightly dry ( her creatinine is up, wrinkling of the skin in her legs/feet). Lasix has been held while receiving acetazolamide (had dose yesterday and today-held for tommorw than can add back for 2 more days). Will need to continue to monitor her weight and attempt to gauge her fluid status. (4) Elevated troponin Current Visit: Yes Status: Acute Code(s): R74.8 - ABNORMAL LEVELS OF OTHER SERUM ENZYMES SNOMED Code(s): 711102403 Comment: Likely related to demand ischemia from probable CHF. No further work up. Echo done previously at [facility] is limited due to the patient's habitus but EF was reportedly low normal. (5) Type II diabetes mellitus Current Visit: Yes Status: Acute Comment: Sugars are under good control. Continue current insulin regimen. (6) HTN (hypertension) Current Visit: Yes Status: Acute Code(s): I10 - ESSENTIAL (PRIMARY) HYPERTENSION SNOMED Code(s): 93180411 Comment: BP is under good control. Continue current medication regimen. (7) HLD (hyperlipidemia) Current Visit: Yes Status: Acute Code(s): E78.5 - HYPERLIPIDEMIA, UNSPECIFIED SNOMED Code(s): 80123934 Comment: She is not on any therapy specifically for hyperlipidemia. Follow as outpatient. (8) Hypothyroidism Current Visit: Yes Status: Acute Code(s): E03.9 - HYPOTHYROIDISM, UNSPECIFIED SNOMED Code(s): 96840346 Comment: Continue current dose of synthroid. TSH is still elevated- dose just adjusted last month. Follow up in a couple weeks. (9) Atrial fibrillation Current Visit: Yes Status: Acute Code(s): I48.91 - UNSPECIFIED ATRIAL FIBRILLATION SNOMED Code(s): 65132653 Comment: I could not determine what dose of coumadin the patient was taking at home. She received 5mg last night and will get 5 again tonight. Follow up INR tomorrow. (10) GERD (gastroesophageal reflux disease) Current Visit: Yes Status: Acute Code(s): K21.9 - GASTRO-ESOPHAGEAL REFLUX DISEASE WITHOUT ESOPHAGITIS SNOMED Code(s): 297326857 Comment: Continue protonix (11) DVT prophylaxis Current Visit: Yes Status: Acute Code(s): PUQ9981 - SNOMED Code(s): 016990179 Comment: therapeutic INR (12) Full code status Current Visit: Yes Status: Acute Code(s): Z78.9 - OTHER SPECIFIED HEALTH STATUS SNOMED Code(s): 111084937
[2016-07-13] MEDS: Acetaminophen TAB* 325 MG PO PRN (13:24)
[2016-07-13] MEDS ORDERED: Warfarin TAB(*) 5 MG PO ONE (17:00)
[2016-07-13] MEDS: Cetirizine* 10 MG TAB PO SCH (17:31)
[2016-07-13] MEDS ORDERED: Insulin LISPRO* 1 UNITS UNIT SUBCUT ONE (20:59)
[2016-07-13] MEDS: Senna TAB PO SCH (21:00)
[2016-07-13] MEDS: Insulin GLARGINE(*) 1 UNITS UNIT SUBCUT SCH (21:03)
[2016-07-13] MEDS: Lidocaine Patch REMOVE* 1 NOTE MISC PATCH OFF SCH (21:04)
[2016-07-14 05:31] LABS: BUN/Creatinine Ratio 16.1 (8-20); Calcium 9.3 mg/dL (8.6-10.3); EGFR African American 49.3 (>60); EGFR Non-African American 38.3 (>60); Magnesium 1.9 mg/dL (1.9-2.7); Potassium 3.7 mmol/L (3.5-5.0)
[2016-07-14] MEDS: Levothyroxine TAB* 100 MCG TAB PO SCH (06:28)
[2016-07-14] MEDS: Omeprazole CAP* 20 MG PO SCH (06:29)
[2016-07-14] MEDS: Insulin LISPRO* 1 UNITS UNIT SUBCUT SCH ×4 (11:30→21:18)
[2016-07-14] MEDS: Lidocaine PATCH 5%* 1 PATCH TRANSDERM SCH (11:52)
[2016-07-14] MEDS: Cholecalciferol TAB* 1000 UNITS PO SCH (11:54)
[2016-07-14] MEDS: Multivitamins/Minerals TAB PO SCH (11:55)
[2016-07-14] MEDS: Cyanocobalamin TAB* 500 MCG PO SCH (12:23)
[2016-07-14] MEDS: Ferrous Sulfate TAB* 325 MG PO SCH (12:23)
[2016-07-14] MEDS: Metoprolol Succinate XL TAB* 25 MG PO SCH (12:24)
[2016-07-14] MEDS: Docusate CAP* 100 MG PO SCH ×2 (12:24→20:58)
[2016-07-14] MEDS: Lisinopril TAB* 5 MG PO SCH (12:24)
[2016-07-14 14:27] LABS: FIO2 3
[2016-07-14 14:44] LABS: PCO2 Arterial 74 mmHg (35-45)
--- NOTE | 2016-07-14 15:05 | PN ---
Subjective Date of Service: 07/14/16 Interval History: Slept well overnight. Used BiPAP all night. Still wearing, denies SOB, cough, CP. Has not been OOB Objective Active Medications: Acetaminophen (Tylenol Tab*) 650 mg PO Q6H PRN PRN Reason: PAIN Last Admin: 07/13/16 13:24 Dose: 650 mg Albuterol (Ventolin 2.5 Mg/3 Ml Neb.Carol*) 2.5 mg INH Q4H PRN PRN Reason: WHEEZING Albuterol/Ipratropium (Duoneb (Albuterol 2.5 Mg/Ipratropium 0.5 Mg)) 1 neb INH Q4H PRN PRN Reason: SHORTNESS OF BREATH Bisacodyl (Dulcolax Supp*) 10 mg [place] DAILY PRN PRN Reason: CONSTIPATION Calcium Carbonate (Tums*) 500 mg PO DAILY PRN PRN Reason: INDIGESTION Cetirizine HCl (Zyrtec*) 10 mg PO QPM [facility] Last Admin: 07/13/16 17:31 Dose: 10 mg Cholecalciferol (Vitamin D Tab*) 4,000 units PO DAILY [facility] Last Admin: 07/14/16 11:54 Dose: 4,000 units Cyanocobalamin (Vitamin B12 Tab*) 250 mcg PO DAILY [facility] Last Admin: 07/14/16 12:23 Dose: 250 mcg Dextrose (D50w Syringe 50 Ml*) 12.5 gm IV PUSH .FOR FS < 60 - SS PRN PRN Reason: FS < 60 Docusate Sodium (Colace Cap*) 100 mg PO BID [facility] Last Admin: 07/14/16 12:24 Dose: 100 mg Ferrous Sulfate (Ferrous Sulfate Tab*) 325 mg PO DAILY [facility] Last Admin: 07/14/16 12:23 Dose: 325 mg Insulin Glargine (Lantus(*)) 8 units SUBCUT BEDTIME [facility] Last Admin: 07/13/16 21:03 Dose: 8 units Insulin Human Lispro (Humalog*) 0 units SUBCUT ACHS [facility] PRN Reason: Protocol Last Admin: 07/14/16 14:57 Dose: Not Given Levothyroxine Sodium (Synthroid Tab*) 400 mcg PO DAILY@0600 [facility] Last Admin: 07/14/16 06:28 Dose: 400 mcg Lidocaine (Lidoderm 5% Patch*) 1 patch TRANSDERM DAILY [facility] Last Admin: 07/14/16 11:52 Dose: 1 patch Lisinopril (Prinivil Tab*) 2.5 mg PO DAILY [facility] Last Admin: 07/14/16 12:24 Dose: 2.5 mg Metoprolol Succinate (Toprol Xl Tab*) 25 mg PO DAILY [facility] Last Admin: 07/14/16 12:24 Dose: 25 mg Multivitamins/Minerals (Theragran/Minerals Tab*) 1 tab PO DAILY [facility] Last Admin: 07/14/16 11:55 Dose: 1 tab Omeprazole (Prilosec Cap*) 20 mg PO 0600 [facility] Last Admin: 07/14/16 06:29 Dose: 20 mg Oxycodone HCl (Roxycodone Tab*) 5 mg PO Q6H PRN PRN Reason: PAIN - MODERATE Last Admin: 07/13/16 18:16 Dose: 5 mg Pharmacy Profile Note (Lidocaine Patch Remove*) 1 note PATCH OFF 2100 [facility] Last Admin: 07/13/16 21:04 Dose: 1 note Pharmacy Profile Note (Coumadin Daily Reminder*) 1 note FOLLOW UP 1700 [facility] Last Admin: 07/13/16 17:32 Dose: 1 note Senna (Senokot Tab*) 2 tab PO BEDTIME [facility] Last Admin: 07/13/16 21:00 Dose: Not Given Vital Signs 07/13/16 07/13/16 07/13/16 15:46 16:00 17:00 Temperature 96.6 F Pulse Rate 70 Respiratory 15 16 Rate Blood Pressure 119/83 76/29 (mmHg) O2 Sat by Pulse 94 Oximetry 07/13/16 07/13/16 07/13/16 17:05 17:09 17:13 Temperature Pulse Rate 70 70 Respiratory 18 16 Rate Blood Pressure 89/46 75/42 86/38 (mmHg) O2 Sat by Pulse 95 94 Oximetry 07/13/16 07/13/16 07/13/16 17:15 18:00 19:00 Temperature Pulse Rate 70 69 70 Respiratory 15 15 17 Rate Blood Pressure 101/42 92/38 69/49 (mmHg) O2 Sat by Pulse 95 94 93 Oximetry 07/13/16 07/13/16 07/13/16 19:04 19:06 19:52 Temperature 98.4 F Pulse Rate 70 70 Respiratory 17 21 Rate Blood Pressure 89/50 103/78 (mmHg) O2 Sat by Pulse 93 94 Oximetry 07/13/16 07/13/16 07/13/16 20:00 21:00 21:26 Temperature Pulse Rate 69 70 70 Respiratory 14 14 14 Rate Blood Pressure 103/71 108/89 (mmHg) O2 Sat by Pulse 92 97 95 Oximetry 07/13/16 07/13/16 07/13/16 22:00 22:04 23:00 Temperature Pulse Rate 70 70 70 Respiratory 14 14 15 Rate Blood Pressure 51/39 103/52 120/55 (mmHg) O2 Sat by Pulse 94 94 94 Oximetry 07/13/16 07/14/16 07/14/16 23:55 00:00 00:02 Temperature 98.6 F Pulse Rate 70 70 Respiratory 14 13 Rate Blood Pressure 116/46 (mmHg) O2 Sat by Pulse 93 94 Oximetry 07/14/16 07/14/16 07/14/16 01:00 02:00 03:00 Temperature Pulse Rate 70 70 70 Respiratory 14 18 15 Rate Blood Pressure 98/57 120/82 113/44 (mmHg) O2 Sat by Pulse 96 98 96 Oximetry 07/14/16 07/14/16 07/14/16 03:53 04:00 05:00 Temperature 98.7 F Pulse Rate 70 70 Respiratory 12 14 Rate Blood Pressure 109/45 121/47 (mmHg) O2 Sat by Pulse 95 96 Oximetry 07/14/16 07/14/16 07/14/16 06:00 07:00 07:35 Temperature 98.3 F Pulse Rate 70 70 Respiratory 13 14 Rate Blood Pressure 130/44 (mmHg) O2 Sat by Pulse 94 95 Oximetry 07/14/16 07/14/16 07/14/16 08:00 09:00 10:00 Temperature Pulse Rate 68 70 71 Respiratory 15 16 19 Rate Blood Pressure (mmHg) O2 Sat by Pulse 94 94 91 Oximetry 07/14/16 07/14/16 07/14/16 11:00 12:00 13:00 Temperature 98.3 F Pulse Rate 70 70 71 Respiratory 19 12 17 Rate Blood Pressure (mmHg) O2 Sat by Pulse 88 92 96 Oximetry 07/14/16 14:00 Temperature Pulse Rate 70 Respiratory 20 Rate Blood Pressure (mmHg) O2 Sat by Pulse 97 Oximetry Oxygen Devices in Use Now: CPAP/BiPAP Appearance: obese, lying 35 deg, NAD Eyes: No Scleral Icterus, PERRLA Ears/Nose/Mouth/Throat: Clear Oropharnyx, Mucous Membranes Moist Neck: NL Appearance and Movements; NL JVP, Trachea Midline Respiratory: Symmetrical Chest Expansion and Respiratory Effort, - - decreased right base up 1/2 to apex Cardiovascular: RRR, - - 2/6 TACO Abdominal: NL Sounds; No Tenderness; No Distention, No Hepatosplenomegaly Lymphatic: No Cervical Adenopathy Extremities: - - trace LE edema Neurological: Alert and Oriented x 3 Result Diagrams: 07/13/16 05:50 07/14/16 05:10 Additional Lab and Data: Lab Results 07/10/16 07/10/16 07/10/16 Range/Units 17:40 17:40 17:40 WBC 6.3 (3.5-10.8) 10^3/ul RBC 4.34 (4.0-5.4) 10^6/ul Hgb 9.3 L (12.0-16.0) g/dl Hct 32 L (35-47) % MCV 74 L (80-97) fL MCH 22 L (27-31) pg MCHC 29 L (31-36) g/dl RDW 23 H (10.5-15) % Plt Count 157 (150-450) 10^3/ul MPV 9 (7.4-10.4) um3 Neut % (Auto) 64.4 (38-83) % Lymph % (Auto) 23.3 L (25-47) % [place] % (Auto) 9.9 H (1-9) % Eos % (Auto) 1.3 (0-6) % Baso % (Auto) 1.1 (0-2) % Absolute Neuts (auto) 4.1 (1.5-7.7) 10^3/ul Absolute Lymphs (auto) 1.5 (1.0-4.8) 10^3/ul Absolute Monos (auto) 0.6 (0-0.8) 10^3/ul Absolute Eos (auto) 0.1 (0-0.6) 10^3/ul Absolute Basos (auto) 0.1 (0-0.2) 10^3/ul Absolute Nucleated RBC 0.01 10^3/ul Nucleated RBC % 0.2 Patient Temperature ABG pH (7.35-7.45) ABG pCO2 (35-45) mmHg ABG pO2 (80-100) mmHg ABG HCO3 (19-31) mmol/L ABG O2 Saturation (95-98) % ABG Base Excess (-2.0-2.0) Respiration Rate Ventilator Type Vent Mode FiO2 Inspiratory Time PEEP Pressure Support Pressure Control EPAP IPAP BiPAP Sodium 138 (133-145) mmol/L Potassium 3.4 L (3.5-5.0) mmol/L Chloride 84 L (101-111) mmol/L Carbon Dioxide Pending Anion Gap Pending BUN 13 (6-24) mg/dL Creatinine 0.75 (0.51-0.95) mg/dL Est GFR ( Amer) 98.8 (>60) Est GFR (Non-Af Amer) 76.8 (>60) BUN/Creatinine Ratio 17.3 (8-20) Glucose 136 H (70-100) mg/dL Lactic Acid 1.4 (0.5-2.0) mmol/L Calcium 9.6 (8.6-10.3) mg/dL Magnesium 1.9 (1.9-2.7) mg/dL Total Bilirubin 2.20 H (0.2-1.0) mg/dL AST 15 (13-39) U/L ALT 6 L (7-52) U/L Alkaline Phosphatase 58 (34-104) U/L Total Creatine Kinase 10 (10-223) U/L Troponin I 0.04 H* (<0.04) ng/mL Total Protein 7.0 (6.4-8.9) g/dL Albumin 3.4 (3.2-5.2) g/dL Globulin 3.6 (2-4) g/dL Albumin/Globulin Ratio 0.9 L (1-3) 07/10/16 Range/Units 17:47 WBC (3.5-10.8) 10^3/ul RBC (4.0-5.4) 10^6/ul Hgb (12.0-16.0) g/dl Hct (35-47) % MCV (80-97) fL MCH (27-31) pg MCHC (31-36) g/dl RDW (10.5-15) % Plt Count (150-450) 10^3/ul MPV (7.4-10.4) um3 Neut % (Auto) (38-83) % Lymph % (Auto) (25-47) % [place] % (Auto) (1-9) % Eos % (Auto) (0-6) % Baso % (Auto) (0-2) % Absolute Neuts (auto) (1.5-7.7) 10^3/ul Absolute Lymphs (auto) (1.0-4.8) 10^3/ul Absolute Monos (auto) (0-0.8) 10^3/ul Absolute Eos (auto) (0-0.6) 10^3/ul Absolute Basos (auto) (0-0.2) 10^3/ul Absolute Nucleated RBC 10^3/ul Nucleated RBC % Patient Temperature Not Reportable ABG pH 7.42 (7.35-7.45) ABG pCO2 84 H* (35-45) mmHg ABG pO2 140 H (80-100) mmHg ABG HCO3 45.4 H* (19-31) mmol/L ABG O2 Saturation 99.8 H (95-98) % ABG Base Excess 26.2 H (-2.0-2.0) Respiration Rate Not Reportable Ventilator Type Not Reportable Vent Mode Not Reportable FiO2 12 Inspiratory Time Not Reportable PEEP Not Reportable Pressure Support Not Reportable Pressure Control Not Reportable EPAP Not Reportable IPAP Not Reportable BiPAP Not Reportable Sodium (133-145) mmol/L Potassium (3.5-5.0) mmol/L Chloride (101-111) mmol/L Carbon Dioxide Anion Gap BUN (6-24) mg/dL Creatinine (0.51-0.95) mg/dL Est GFR ( Amer) (>60) Est GFR (Non-Af Amer) (>60) BUN/Creatinine Ratio (8-20) Glucose (70-100) mg/dL Lactic Acid (0.5-2.0) mmol/L Calcium (8.6-10.3) mg/dL Magnesium (1.9-2.7) mg/dL Total Bilirubin (0.2-1.0) mg/dL AST (13-39) U/L ALT (7-52) U/L Alkaline Phosphatase (34-104) U/L Total Creatine Kinase (10-223) U/L Troponin I (<0.04) ng/mL Total Protein (6.4-8.9) g/dL Albumin (3.2-5.2) g/dL Globulin (2-4) g/dL Albumin/Globulin Ratio (1-3) Microbiology and Other Data: Microbiology 07/10/16 22:50 Nasal Screen MRSA (PCR)([place]) - Final Nasal Mrsa Positive Assess/Plan/Problems-Billing Ms Springer is a super morbidly obese female with a h/o chronic hypercarbic respiratory failure, type II DM, JOLEEN, hypothyroidism, h/o afib with SSS, HTN, HLD and GERD who presented to the ER with c/o low O2 saturations with stay complicated by hypoxic/hypercarbic respiratory failure - Patient Problems (1) Hypoxia Current Visit: Yes Status: Acute Code(s): R09.02 - HYPOXEMIA SNOMED Code(s ): 795905787 Comment: Hypoxia improving. Rapid onset may suggest flash pulm edema improved with diuresis and NIPPV e/o congestive heart failure on CXR and CT with interstitial fluid. Last lasix 07/12. Limited by TAMAR and contraction alkalosis Hold lasix today and reeval tomorrow based on O2 need and kidney function She does have a R pleural effusion though no need to tap at this time. (2) Chronic hypercapnic respiratory failure Comment: Acute exacerbation of Hypercarbia improved today with use of BiPAP Continue BiPAP with sleep and as needed. Received 2 doses of acetazolamide. Now ABG appears compensated chronic resp acidosis She should [place] [facility] [place] or she will likely bounce right back from [facility]. (3) Elevated troponin Comment: Likely related to demand ischemia from probable CHF. No further work up. Echo done previously at [facility] is limited due to the patient's habitus but EF was reportedly low normal. (4) Type II diabetes mellitus Comment: Sugars are under good control. Continue lantus 8 with sliding scale (5) HTN (hypertension) Comment: lisinopril low dose metoprolol (6) Atrial fibrillation Comment: Supratherapeutic Hold today and repeat in AM (7) Hypothyroidism Comment: Continue current dose of synthroid. TSH is still elevated- dose just adjusted last month. Follow up in a couple weeks. (8) GERD (gastroesophageal reflux disease) Comment: Continue protonix (9) DVT prophylaxis Comment: coumadin
[2016-07-14] MEDS: Cetirizine* 10 MG TAB PO SCH (17:44)
[2016-07-14] MEDS: Senna TAB PO SCH (20:58)
[2016-07-14] MEDS: Insulin GLARGINE(*) 1 UNITS UNIT SUBCUT SCH (21:18)
[2016-07-14] MEDS: Lidocaine Patch REMOVE* 1 NOTE MISC PATCH OFF SCH (21:19)
[2016-07-15] MEDS: Levothyroxine TAB* 100 MCG TAB PO SCH (06:01)
[2016-07-15] MEDS: Omeprazole CAP* 20 MG PO SCH (06:02)
[2016-07-15 06:35] LABS: BUN/Creatinine Ratio 20.2 (8-20); Calcium 9.3 mg/dL (8.6-10.3); EGFR Non-African American 47.4 (>60); Potassium 3.2 mmol/L (3.5-5.0)
[2016-07-15] MEDS: Cyanocobalamin TAB* 500 MCG PO SCH (08:32)
[2016-07-15] MEDS: Ferrous Sulfate TAB* 325 MG PO SCH (08:32)
[2016-07-15] MEDS: Cholecalciferol TAB* 1000 UNITS PO SCH (08:32)
[2016-07-15] MEDS: Multivitamins/Minerals TAB PO SCH (08:33)
[2016-07-15] MEDS: Docusate CAP* 100 MG PO SCH ×2 (08:33→21:57)
[2016-07-15] MEDS: Lidocaine PATCH 5%* 1 PATCH TRANSDERM SCH (08:34)
[2016-07-15] MEDS: Insulin LISPRO* 1 UNITS UNIT SUBCUT SCH ×4 (08:35→21:57)
[2016-07-15] MEDS ORDERED: NS 0.9% 1000 ML* 500 ML IV SCH (09:15)
[2016-07-15] MEDS: KCL 20 MEQ/100 ML IVPREMIX* 20 MEQ/100 ML BAG IV SCH ×2 (10:20→14:09)
[2016-07-15] MEDS: Metoprolol Succinate XL TAB* 25 MG PO SCH (10:45)
[2016-07-15] MEDS: Lisinopril TAB* 5 MG PO SCH (10:45)
--- NOTE | 2016-07-15 16:21 | PN ---
Subjective Date of Service: 07/15/16 Interval History: Slept with BiPAP. Feels well rested this AM. BP lower but denies LH, SOB, CP, N/ V Appetite is good OOB to chair yesterday and plan on it again today\ Objective Active Medications: Acetaminophen (Tylenol Tab*) 650 mg PO Q6H PRN PRN Reason: PAIN Last Admin: 07/13/16 13:24 Dose: 650 mg Albuterol (Ventolin 2.5 Mg/3 Ml Neb.Carol*) 2.5 mg INH Q4H PRN PRN Reason: WHEEZING Albuterol/Ipratropium (Duoneb (Albuterol 2.5 Mg/Ipratropium 0.5 Mg)) 1 neb INH Q4H PRN PRN Reason: SHORTNESS OF BREATH Bisacodyl (Dulcolax Supp*) 10 mg [place] DAILY PRN PRN Reason: CONSTIPATION Calcium Carbonate (Tums*) 500 mg PO DAILY PRN PRN Reason: INDIGESTION Cetirizine HCl (Zyrtec*) 10 mg PO QPM [facility] Last Admin: 07/14/16 17:44 Dose: 10 mg Cholecalciferol (Vitamin D Tab*) 4,000 units PO DAILY [facility] Last Admin: 07/15/16 08:32 Dose: 4,000 units Cyanocobalamin (Vitamin B12 Tab*) 250 mcg PO DAILY [facility] Last Admin: 07/15/16 08:32 Dose: 250 mcg Dextrose (D50w Syringe 50 Ml*) 12.5 gm IV PUSH .FOR FS < 60 - SS PRN PRN Reason: FS < 60 Docusate Sodium (Colace Cap*) 100 mg PO BID [facility] Last Admin: 07/15/16 08:33 Dose: 100 mg Ferrous Sulfate (Ferrous Sulfate Tab*) 325 mg PO DAILY [facility] Last Admin: 07/15/16 08:32 Dose: 325 mg Sodium Chloride (Ns 0.9% 1000 Ml*) 500 mls @ 999 mls/hr IV PER RATE [facility] Last Admin: 07/15/16 09:06 Dose: 999 mls/hr Sodium Chloride (Ns 0.9% 1000 Ml*) 1,000 mls @ 100 mls/hr IV PER RATE [facility] Stop: 07/16/16 02:29 Insulin Glargine (Lantus(*)) 8 units SUBCUT BEDTIME [facility] Last Admin: 07/14/16 21:18 Dose: 8 units Insulin Human Lispro (Humalog*) 0 units SUBCUT ACHS [facility] PRN Reason: Protocol Last Admin: 07/15/16 13:02 Dose: 3 units Levothyroxine Sodium (Synthroid Tab*) 400 mcg PO DAILY@0600 [facility] Last Admin: 07/15/16 06:01 Dose: 400 mcg Lidocaine (Lidoderm 5% Patch*) 1 patch TRANSDERM DAILY [facility] Last Admin: 07/15/16 08:34 Dose: 1 patch Lisinopril (Prinivil Tab*) 2.5 mg PO DAILY [facility] Last Admin: 07/15/16 10:45 Dose: Not Given Metoprolol Succinate (Toprol Xl Tab*) 25 mg PO DAILY [facility] Last Admin: 07/15/16 10:45 Dose: Not Given Multivitamins/Minerals (Theragran/Minerals Tab*) 1 tab PO DAILY [facility] Last Admin: 07/15/16 08:33 Dose: 1 tab Omeprazole (Prilosec Cap*) 20 mg PO 0600 [facility] Last Admin: 07/15/16 06:02 Dose: 20 mg Oxycodone HCl (Roxycodone Tab*) 5 mg PO Q6H PRN PRN Reason: PAIN - MODERATE Last Admin: 07/13/16 18:16 Dose: 5 mg Pharmacy Profile Note (Lidocaine Patch Remove*) 1 note PATCH OFF 2100 [facility] Last Admin: 07/14/16 21:19 Dose: 1 note Pharmacy Profile Note (Coumadin Daily Reminder*) 1 note FOLLOW UP 1700 [facility] Last Admin: 07/14/16 17:20 Dose: Not Given Senna (Senokot Tab*) 2 tab PO BEDTIME [facility] Last Admin: 07/14/16 20:58 Dose: Not Given Vital Signs 07/14/16 07/14/16 07/14/16 17:00 17:04 17:47 Temperature Pulse Rate 70 70 70 Respiratory 15 15 14 Rate Blood Pressure 88/45 97/45 93/52 (mmHg) O2 Sat by Pulse 100 97 98 Oximetry 07/14/16 07/14/16 07/14/16 18:00 19:00 19:02 Temperature Pulse Rate 70 70 72 Respiratory 13 16 21 Rate Blood Pressure 101/44 76/51 91/49 (mmHg) O2 Sat by Pulse 97 95 99 Oximetry 07/14/16 07/14/16 07/14/16 20:00 21:00 21:04 Temperature 97.1 F Pulse Rate 71 72 70 Respiratory 16 16 18 Rate Blood Pressure 97/45 138/111 109/43 (mmHg) O2 Sat by Pulse 94 95 95 Oximetry 07/14/16 07/14/16 07/14/16 22:00 22:29 23:00 Temperature Pulse Rate 71 70 70 Respiratory 14 16 14 Rate Blood Pressure 100/39 89/39 (mmHg) O2 Sat by Pulse 97 97 95 Oximetry 07/14/16 07/14/16 07/15/16 23:19 23:42 00:00 Temperature 97.9 F Pulse Rate 73 71 Respiratory 13 16 Rate Blood Pressure 96/41 (mmHg) O2 Sat by Pulse 95 96 Oximetry 07/15/16 07/15/16 07/15/16 00:01 01:00 01:02 Temperature Pulse Rate 71 73 73 Respiratory 17 13 13 Rate Blood Pressure 105/47 85/33 85/35 (mmHg) O2 Sat by Pulse 97 95 95 Oximetry 07/15/16 07/15/16 07/15/16 01:04 02:00 02:58 Temperature Pulse Rate 72 71 55 Respiratory 14 13 19 Rate Blood Pressure 93/44 96/33 104/42 (mmHg) O2 Sat by Pulse 95 95 96 Oximetry 07/15/16 07/15/16 07/15/16 03:00 04:00 05:00 Temperature 99.1 F Pulse Rate 54 54 71 Respiratory 16 15 17 Rate Blood Pressure 103/40 107/39 97/39 (mmHg) O2 Sat by Pulse 96 99 94 Oximetry 07/15/16 07/15/16 07/15/16 06:00 06:02 07:00 Temperature Pulse Rate 53 53 71 Respiratory 13 15 16 Rate Blood Pressure 109/39 95/40 (mmHg) O2 Sat by Pulse 96 95 98 Oximetry 07/15/16 07/15/16 07/15/16 08:00 08:45 08:50 Temperature 97.8 F Pulse Rate 53 53 60 Respiratory 16 16 19 Rate Blood Pressure 102/39 75/31 64/48 (mmHg) O2 Sat by Pulse 97 94 94 Oximetry 07/15/16 07/15/16 07/15/16 09:00 09:52 10:00 Temperature Pulse Rate 68 59 Respiratory 17 20 18 Rate Blood Pressure 91/34 124/41 103/44 (mmHg) O2 Sat by Pulse 95 94 Oximetry 07/15/16 07/15/16 07/15/16 10:20 10:31 10:40 Temperature Pulse Rate 61 59 59 Respiratory 17 16 15 Rate Blood Pressure 105/42 107/44 116/30 (mmHg) O2 Sat by Pulse 94 94 93 Oximetry 07/15/16 07/15/16 07/15/16 10:47 11:00 11:58 Temperature Pulse Rate 58 61 71 Respiratory 16 16 17 Rate Blood Pressure 112/50 99/72 96/63 (mmHg) O2 Sat by Pulse 93 94 100 Oximetry 07/15/16 07/15/16 07/15/16 12:00 12:20 13:00 Temperature 98 F Pulse Rate 70 58 57 Respiratory 16 16 15 Rate Blood Pressure 105/44 104/37 100/40 (mmHg) O2 Sat by Pulse 100 100 100 Oximetry 07/15/16 07/15/16 07/15/16 13:20 13:40 14:00 Temperature Pulse Rate 70 65 57 Respiratory 16 16 14 Rate Blood Pressure 96/51 103/43 107/40 (mmHg) O2 Sat by Pulse 100 98 99 Oximetry 07/15/16 07/15/16 07/15/16 14:20 15:00 15:05 Temperature Pulse Rate 55 64 66 Respiratory 15 24 18 Rate Blood Pressure 107/38 110/32 (mmHg) O2 Sat by Pulse 94 92 95 Oximetry 07/15/16 07/15/16 07/15/16 15:20 15:23 15:46 Temperature 98.4 F Pulse Rate 70 70 Respiratory 14 17 Rate Blood Pressure 78/53 75/44 (mmHg) O2 Sat by Pulse 98 97 Oximetry Oxygen Devices in Use Now: Nasal Cannula - 3L 93% Appearance: NAD Eyes: No Scleral Icterus, PERRLA Ears/Nose/Mouth/Throat: Clear Oropharnyx, Mucous Membranes Moist Neck: NL Appearance and Movements; NL JVP, Trachea Midline Respiratory: Symmetrical Chest Expansion and Respiratory Effort, - - clear, no rales Cardiovascular: RRR Abdominal: NL Sounds; No Tenderness; No Distention, No Hepatosplenomegaly Lymphatic: No Cervical Adenopathy Extremities: - - left pre tibial with skin break down minimal surrounding erythema Neurological: Alert and Oriented x 3 Result Diagrams: 07/13/16 05:50 07/15/16 06:05 Additional Lab and Data: Lab Results 07/10/16 07/10/16 07/10/16 Range/Units 17:40 17:40 17:40 WBC 6.3 (3.5-10.8) 10^3/ul RBC 4.34 (4.0-5.4) 10^6/ul Hgb 9.3 L (12.0-16.0) g/dl Hct 32 L (35-47) % MCV 74 L (80-97) fL MCH 22 L (27-31) pg MCHC 29 L (31-36) g/dl RDW 23 H (10.5-15) % Plt Count 157 (150-450) 10^3/ul MPV 9 (7.4-10.4) um3 Neut % (Auto) 64.4 (38-83) % Lymph % (Auto) 23.3 L (25-47) % [place] % (Auto) 9.9 H (1-9) % Eos % (Auto) 1.3 (0-6) % Baso % (Auto) 1.1 (0-2) % Absolute Neuts (auto) 4.1 (1.5-7.7) 10^3/ul Absolute Lymphs (auto) 1.5 (1.0-4.8) 10^3/ul Absolute Monos (auto) 0.6 (0-0.8) 10^3/ul Absolute Eos (auto) 0.1 (0-0.6) 10^3/ul Absolute Basos (auto) 0.1 (0-0.2) 10^3/ul Absolute Nucleated RBC 0.01 10^3/ul Nucleated RBC % 0.2 Patient Temperature ABG pH (7.35-7.45) ABG pCO2 (35-45) mmHg ABG pO2 (80-100) mmHg ABG HCO3 (19-31) mmol/L ABG O2 Saturation (95-98) % ABG Base Excess (-2.0-2.0) Respiration Rate Ventilator Type Vent Mode FiO2 Inspiratory Time PEEP Pressure Support Pressure Control EPAP IPAP BiPAP Sodium 138 (133-145) mmol/L Potassium 3.4 L (3.5-5.0) mmol/L Chloride 84 L (101-111) mmol/L Carbon Dioxide Pending Anion Gap Pending BUN 13 (6-24) mg/dL Creatinine 0.75 (0.51-0.95) mg/dL Est GFR ( Amer) 98.8 (>60) Est GFR (Non-Af Amer) 76.8 (>60) BUN/Creatinine Ratio 17.3 (8-20) Glucose 136 H (70-100) mg/dL Lactic Acid 1.4 (0.5-2.0) mmol/L Calcium 9.6 (8.6-10.3) mg/dL Magnesium 1.9 (1.9-2.7) mg/dL Total Bilirubin 2.20 H (0.2-1.0) mg/dL AST 15 (13-39) U/L ALT 6 L (7-52) U/L Alkaline Phosphatase 58 (34-104) U/L Total Creatine Kinase 10 (10-223) U/L Troponin I 0.04 H* (<0.04) ng/mL Total Protein 7.0 (6.4-8.9) g/dL Albumin 3.4 (3.2-5.2) g/dL Globulin 3.6 (2-4) g/dL Albumin/Globulin Ratio 0.9 L (1-3) 07/10/16 Range/Units 17:47 WBC (3.5-10.8) 10^3/ul RBC (4.0-5.4) 10^6/ul Hgb (12.0-16.0) g/dl Hct (35-47) % MCV (80-97) fL MCH (27-31) pg MCHC (31-36) g/dl RDW (10.5-15) % Plt Count (150-450) 10^3/ul MPV (7.4-10.4) um3 Neut % (Auto) (38-83) % Lymph % (Auto) (25-47) % [place] % (Auto) (1-9) % Eos % (Auto) (0-6) % Baso % (Auto) (0-2) % Absolute Neuts (auto) (1.5-7.7) 10^3/ul Absolute Lymphs (auto) (1.0-4.8) 10^3/ul Absolute Monos (auto) (0-0.8) 10^3/ul Absolute Eos (auto) (0-0.6) 10^3/ul Absolute Basos (auto) (0-0.2) 10^3/ul Absolute Nucleated RBC 10^3/ul Nucleated RBC % Patient Temperature Not Reportable ABG pH 7.42 (7.35-7.45) ABG pCO2 84 H* (35-45) mmHg ABG pO2 140 H (80-100) mmHg ABG HCO3 45.4 H* (19-31) mmol/L ABG O2 Saturation 99.8 H (95-98) % ABG Base Excess 26.2 H (-2.0-2.0) Respiration Rate Not Reportable Ventilator Type Not Reportable Vent Mode Not Reportable FiO2 12 Inspiratory Time Not Reportable PEEP Not Reportable Pressure Support Not Reportable Pressure Control Not Reportable EPAP Not Reportable IPAP Not Reportable BiPAP Not Reportable Sodium (133-145) mmol/L Potassium (3.5-5.0) mmol/L Chloride (101-111) mmol/L Carbon Dioxide Anion Gap BUN (6-24) mg/dL Creatinine (0.51-0.95) mg/dL Est GFR ( Amer) (>60) Est GFR (Non-Af Amer) (>60) BUN/Creatinine Ratio (8-20) Glucose (70-100) mg/dL Lactic Acid (0.5-2.0) mmol/L Calcium (8.6-10.3) mg/dL Magnesium (1.9-2.7) mg/dL Total Bilirubin (0.2-1.0) mg/dL AST (13-39) U/L ALT (7-52) U/L Alkaline Phosphatase (34-104) U/L Total Creatine Kinase (10-223) U/L Troponin I (<0.04) ng/mL Total Protein (6.4-8.9) g/dL Albumin (3.2-5.2) g/dL Globulin (2-4) g/dL Albumin/Globulin Ratio (1-3) Microbiology and Other Data: Microbiology 07/10/16 22:50 Nasal Screen MRSA (PCR)([facility]) - Final Nasal Mrsa Positive Assess/Plan/Problems-Billing Ms Springer is a super morbidly obese female with a h/o chronic hypercarbic respiratory failure, type II DM, JOLEEN, hypothyroidism, h/o afib with SSS, HTN, HLD and GERD who presented to the ER with c/o low O2 saturations with stay complicated by hypoxic/hypercarbic respiratory failure - Patient Problems (1) Hypoxia Current Visit: Yes Status: Acute Code(s): R09.02 - HYPOXEMIA SNOMED Code(s ): 971173371 Comment: Hypoxia improving. Rapid onset may suggest flash pulm edema improved with diuresis and NIPPV e/o congestive heart failure on CXR and CT with interstitial fluid. Last lasix 07/12. Although net negative last 24 hrs without diuresis Limited by TAMAR contraction alkalosis, and now low BP Hold and reeval tomorrow based on O2 need and kidney function and Blood pressure She does have a R pleural effusion though no need to tap at this time. Received 1L NS this AM for hypotension. Will order additional liter at 100cc/ hour now Check chest XRAY in AM (2) Chronic hypercapnic respiratory failure Comment: Acute exacerbation of Hypercarbia improved with use of BiPAP Continue BiPAP with sleep and as needed. Received 2 doses of acetazolamide. Now ABG appears compensated chronic resp acidosis She should remain at [facility] until stabilized or she will likely bounce right back from [facility]. (3) Elevated troponin Comment: Likely related to demand ischemia from probable CHF. No further work up. Echo done previously at [facility] is limited due to the patient's habitus but EF was reportedly low normal. (4) Type II diabetes mellitus Comment: Sugars are under good control. Continue lantus 8 with sliding scale (5) HTN (hypertension) Comment: lisinopril low dose metoprolol (6) Atrial fibrillation Comment: Supratherapeutic Hold today and repeat in AM (7) Hypothyroidism Comment: Continue current dose of synthroid. TSH is still elevated- dose just adjusted last month. Follow up in a couple weeks. (8) GERD (gastroesophageal reflux disease) Comment: Continue protonix (9) DVT prophylaxis Comment: coumadin Status and Disposition: Oxygen and BiPAP (during the day) need declining. Volume status still tenuous - needed crystalloids today for hypotension. Will be ready when no additional boluses needed and respiratory status stable
[2016-07-15] MEDS ORDERED: NS 0.9% 1000 ML* 1,000 ML IV SCH (16:30)
[2016-07-15] MEDS: Cetirizine* 10 MG TAB PO SCH (17:40)
[2016-07-15] MEDS: Lidocaine Patch REMOVE* 1 NOTE MISC PATCH OFF SCH (21:55)
[2016-07-15] MEDS: Senna TAB PO SCH (21:57)
[2016-07-15] MEDS: Insulin GLARGINE(*) 1 UNITS UNIT SUBCUT SCH (21:58)
[2016-07-16 04:45] LABS: Hematocrit 25 % (35-47); Hemoglobin 7.6 g/dl (12.0-16.0); Mean Corpuscular HGB Conc 30 g/dl (31-36); Mean Corpuscular Hemoglobin 22 pg (27-31); Mean Platelet Volume 9 um3 (7.4-10.4); Red Blood Count 3.45 10^6/ul (4.0-5.4); White Blood Count 4.8 10^3/ul (3.5-10.8)
[2016-07-16 04:46] LABS: Comments Flag Yes; Mean Corpuscular Volume 74 fL (80-97); Red Cell Distribution Width 24 % (10.5-15)
[2016-07-16 04:54] LABS: BUN/Creatinine Ratio 21.4 (8-20); Calcium 8.9 mg/dL (8.6-10.3); EGFR African American 68.5 (>60); EGFR Non-African American 53.3 (>60); Potassium 3.2 mmol/L (3.5-5.0)
[2016-07-16] MEDS: Levothyroxine TAB* 100 MCG TAB PO SCH (05:30)
[2016-07-16] MEDS: Omeprazole CAP* 20 MG PO SCH (05:30)
[2016-07-16] MEDS: oxyCODONE TAB* 5 MG TAB PO PRN (06:19)
--- NOTE | 2016-07-16 07:48 | RAD ---
INDICATION: Fluid overload. Respiratory distress. COMPARISON: July 10, 2016 TECHNIQUE: An AP portable view obtained at 0630 hours is submitted. FINDINGS: Bones/Soft Tissues: There are no acute bony findings. There is a left-sided cardiac pacemaker Cardiomediastinal: The correct silhouette remains enlarged. There is mild interstitial edema with improvement Lungs: No focal infiltrates. Pleura: Small bilateral effusions. Other: None IMPRESSION: ENLARGED CARDIAC SILHOUETTE WITH MILD INTERSTITIAL CONGESTION. THERE IS INTERVAL IMPROVEMENT.
[2016-07-16] MEDS: Cyanocobalamin TAB* 500 MCG PO SCH (08:47)
[2016-07-16] MEDS: Cholecalciferol TAB* 1000 UNITS PO SCH (08:47)
[2016-07-16] MEDS: Lisinopril TAB* 5 MG PO SCH (08:48)
[2016-07-16] MEDS: Metoprolol Succinate XL TAB* 25 MG PO SCH (08:48)
[2016-07-16] MEDS: Ferrous Sulfate TAB* 325 MG PO SCH (08:48)
[2016-07-16] MEDS: Multivitamins/Minerals TAB PO SCH (08:48)
[2016-07-16] MEDS: Lidocaine PATCH 5%* 1 PATCH TRANSDERM SCH (08:55)
[2016-07-16] MEDS: Insulin LISPRO* 1 UNITS UNIT SUBCUT SCH ×4 (08:56→20:23)
[2016-07-16] MEDS: Docusate CAP* 100 MG PO SCH ×2 (09:34→20:24)
[2016-07-16] MEDS ORDERED: Potassium Chlor TAB* 20 MEQ TAB.ER PO ONE (16:07)
--- NOTE | 2016-07-16 16:11 | PN ---
Subjective Date of Service: 07/16/16 Interval History: . Interviewed and examined patient at bedside; Discussed case with Dr. Lua ; Reviewed previous notes and radiology results; did well with BiPAP overnight discussed case with ICU staff who feel comfortable she is ok for medical floor. Family History: Unchanged from Admission Social History: Unchanged from Admission Past Medical History: Unchanged from Admission Objective Active Medications: . Acetaminophen (Tylenol Tab*) 650 mg PO Q6H PRN PRN Reason: PAIN Last Admin: 07/13/16 13:24 Dose: 650 mg Albuterol (Ventolin 2.5 Mg/3 Ml Neb.Carol*) 2.5 mg INH Q4H PRN PRN Reason: WHEEZING Albuterol/Ipratropium (Duoneb (Albuterol 2.5 Mg/Ipratropium 0.5 Mg)) 1 neb INH Q4H PRN PRN Reason: SHORTNESS OF BREATH Bisacodyl (Dulcolax Supp*) 10 mg HI DAILY PRN PRN Reason: CONSTIPATION Calcium Carbonate (Tums*) 500 mg PO DAILY PRN PRN Reason: INDIGESTION Cetirizine HCl (Zyrtec*) 10 mg PO QPM [facility] Last Admin: 07/15/16 17:40 Dose: 10 mg Cholecalciferol (Vitamin D Tab*) 4,000 units PO DAILY [facility] Last Admin: 07/16/16 08:47 Dose: 4,000 units Cyanocobalamin (Vitamin B12 Tab*) 250 mcg PO DAILY [facility] Last Admin: 07/16/16 08:47 Dose: 250 mcg Dextrose (D50w Syringe 50 Ml*) 12.5 gm IV PUSH .FOR FS < 60 - SS PRN PRN Reason: FS < 60 Docusate Sodium (Colace Cap*) 100 mg PO BID [facility] Last Admin: 07/16/16 09:34 Dose: Not Given Ferrous Sulfate (Ferrous Sulfate Tab*) 325 mg PO DAILY [facility] Last Admin: 07/16/16 08:48 Dose: 325 mg Sodium Chloride (Ns 0.9% 1000 Ml*) 500 mls @ 999 mls/hr IV PER RATE [facility] Last Admin: 07/15/16 09:06 Dose: 999 mls/hr Insulin Glargine (Lantus(*)) 8 units SUBCUT BEDTIME [facility] Last Admin: 07/15/16 21:58 Dose: 8 units Insulin Human Lispro (Humalog*) 0 units SUBCUT ACHS [facility] PRN Reason: Protocol Last Admin: 07/16/16 13:06 Dose: 2 units Levothyroxine Sodium (Synthroid Tab*) 400 mcg PO DAILY@0600 [facility] Last Admin: 07/16/16 05:30 Dose: 400 mcg Lidocaine (Lidoderm 5% Patch*) 1 patch TRANSDERM DAILY [facility] Last Admin: 07/16/16 08:55 Dose: 1 patch Lisinopril (Prinivil Tab*) 2.5 mg PO DAILY [facility] Last Admin: 07/16/16 08:48 Dose: 2.5 mg Metoprolol Succinate (Toprol Xl Tab*) 25 mg PO DAILY [facility] Last Admin: 07/16/16 08:48 Dose: 25 mg Multivitamins/Minerals (Theragran/Minerals Tab*) 1 tab PO DAILY [facility] Last Admin: 07/16/16 08:48 Dose: 1 tab Nystatin (Nystatin Top Powder*) 1 applic TOPICAL TID [facility] Omeprazole (Prilosec Cap*) 20 mg PO 0600 [facility] Last Admin: 07/16/16 05:30 Dose: 20 mg Oxycodone HCl (Roxycodone Tab*) 5 mg PO Q6H PRN PRN Reason: PAIN - MODERATE Last Admin: 07/16/16 06:19 Dose: 5 mg Pharmacy Profile Note (Lidocaine Patch Remove*) 1 note PATCH OFF 2100 [facility] Last Admin: 07/15/16 21:55 Dose: 1 note Pharmacy Profile Note (Coumadin Daily Reminder*) 1 note FOLLOW UP 1700 [facility] Last Admin: 07/15/16 17:17 Dose: 1 note Senna (Senokot Tab*) 2 tab PO BEDTIME [facility] Last Admin: 07/15/16 21:57 Dose: 2 tab Vital Signs 07/15/16 07/15/16 07/15/16 16:20 16:40 17:00 Temperature Pulse Rate 70 56 56 Respiratory 17 16 15 Rate Blood Pressure 114/44 106/44 113/38 (mmHg) O2 Sat by Pulse 98 99 98 Oximetry 07/15/16 07/15/16 07/15/16 17:20 17:40 18:00 Temperature Pulse Rate 70 70 72 Respiratory 13 17 17 Rate Blood Pressure 115/41 104/43 107/39 (mmHg) O2 Sat by Pulse 99 99 96 Oximetry Oxygen Devices in Use Now: Nasal Cannula - 3L 93% Appearance: obese, NAD Eyes: No Scleral Icterus Ears/Nose/Mouth/Throat: Clear Oropharnyx Neck: Trachea Midline Respiratory: Symmetrical Chest Expansion and Respiratory Effort - distant BS Cardiovascular: NL Sounds; No Murmurs; No JVD Abdominal: NL Sounds; No Tenderness; No Distention Extremities: No Edema Skin: No Rash or Ulcers, - - candidiasis in skin folds Neurological: Alert and Oriented x 3 Lines/Tubes/Other Access: Clean, Dry and Intact Peripheral IV Nutrition: Taking PO's Result Diagrams: 07/16/16 04:30 07/16/16 04:30 Additional Lab and Data: . Microbiology and Other Data: Microbiology 07/10/16 22:50 Nasal Screen MRSA (PCR)(SASKIA) - Final Nasal Mrsa Positive Assess/Plan/Problems-Billing . Assessment: Ms Springer is a super morbidly obese female with a h/o chronic hypercarbic respiratory failure, type II DM, JOLEEN, hypothyroidism, h/o afib with SSS, HTN, HLD and GERD who presented to the ER with c/o low O2 saturations with stay complicated by hypoxic/hypercarbic respiratory failure - Patient Problems (1) Hypoxia Current Visit: Yes Status: Acute Priority: Medium Code(s): R09.02 - HYPOXEMIA Comment: Hypoxia improving. Rapid onset may suggest flash pulm edema improved with diuresis and NIPPV e/o congestive heart failure on CXR and CT with interstitial fluid. Last lasix 07/12. Although net negative since admission Limited by TAMAR contraction alkalosis, and low BP Cr and blood pressure suggest she is ~ euvolemic now (intravascularly at least) She does have a R pleural effusion though no need to tap at this time. Received 2L NS 07/15 for hypotension. CXR 07/16 - improved. still interstitial edema, but not excessive. hold at this level. (2) Chronic hypercapnic respiratory failure Current Visit: Yes Status: Acute Priority: High Comment: Acute exacerbation of Hypercarbia improved with use of BiPAP Continue BiPAP with sleep and as needed. Received 2 doses of acetazolamide. ABG appears compensated chronic resp acidosis To [facility] when stable (3) Elevated troponin Current Visit: Yes Status: Acute Priority: Medium Code(s): R74.8 - ABNORMAL LEVELS OF OTHER SERUM ENZYMES Comment: Likely related to demand ischemia from probable CHF. No further work up. Echo done previously at [facility] is limited due to the patient's habitus but EF was reportedly low normal. (4) Type II diabetes mellitus Current Visit: Yes Status: Acute Priority: High Comment: BS under good control. Continue lantus 8 with sliding scale (5) HTN (hypertension) Current Visit: Yes Status: Acute Priority: High Code(s): I10 - ESSENTIAL ( PRIMARY) HYPERTENSION Comment: lisinopril low dose metoprolol (6) Atrial fibrillation Current Visit: Yes Status: Acute Priority: High Code(s): I48.91 - UNSPECIFIED ATRIAL FIBRILLATION Comment: Supratherapeutic Hold today and repeat in AM (7) Hypothyroidism Current Visit: Yes Status: Acute Priority: High Code(s): E03.9 - HYPOTHYROIDISM, UNSPECIFIED Comment: Continue current dose of synthroid. TSH is still elevated- dose just adjusted last month. Follow up in a couple weeks. (8) GERD (gastroesophageal reflux disease) Current Visit: Yes Status: Acute Priority: High Code(s): K21.9 - GASTRO- ESOPHAGEAL REFLUX DISEASE WITHOUT ESOPHAGITIS Comment: Continue protonix (9) DVT prophylaxis Current Visit: Yes Status: Acute Priority: High Code(s): [id number] - Comment: coumadin Status and Disposition: Oxygen and BiPAP (during the day) need declining. Volume status probably about right 07/17/15 --> dc t [facility] when stable le
[2016-07-16] MEDS: Nystatin TOP POWDER* 15 GM BTL TOPICAL SCH ×2 (16:29→21:50)
[2016-07-16] MEDS: Cetirizine* 10 MG TAB PO SCH (18:00)
[2016-07-16] MEDS: Senna TAB PO SCH (20:24)
[2016-07-16] MEDS: Insulin GLARGINE(*) 1 UNITS UNIT SUBCUT SCH (20:24)
[2016-07-16] MEDS: Lidocaine Patch REMOVE* 1 NOTE MISC PATCH OFF SCH (21:13)
[2016-07-17] MEDS: Levothyroxine TAB* 100 MCG TAB PO SCH (05:20)
[2016-07-17] MEDS: Omeprazole CAP* 20 MG PO SCH (05:20)
[2016-07-17 06:46] LABS: Hematocrit 27 % (35-47); Mean Corpuscular HGB Conc 30 g/dl (31-36); Mean Corpuscular Hemoglobin 22 pg (27-31); Mean Platelet Volume 10 um3 (7.4-10.4); White Blood Count 5.1 10^3/ul (3.5-10.8)
[2016-07-17 06:52] LABS: Comments Flag Yes; Mean Corpuscular Volume 74 fL (80-97); Red Cell Distribution Width 24 % (10.5-15)
[2016-07-17 07:11] LABS: Calcium 9.2 mg/dL (8.6-10.3); EGFR African American 70.9 (>60); EGFR Non-African American 55.1 (>60); Potassium 3.3 mmol/L (3.5-5.0)
[2016-07-17] MEDS ORDERED: Potassium Chlor TAB* 10 MEQ TAB.ER PO ONE (08:26)
[2016-07-17] MEDS: Cholecalciferol TAB* 1000 UNITS PO SCH (08:54)
[2016-07-17] MEDS: Docusate CAP* 100 MG PO SCH ×2 (09:00→22:05)
[2016-07-17] MEDS: Multivitamins/Minerals TAB PO SCH (09:02)
[2016-07-17] MEDS: Ferrous Sulfate TAB* 325 MG PO SCH (09:02)
[2016-07-17] MEDS: Metoprolol Succinate XL TAB* 25 MG PO SCH (09:03)
[2016-07-17] MEDS: Insulin LISPRO* 1 UNITS UNIT SUBCUT SCH ×4 (09:04→22:02)
[2016-07-17] MEDS: Lidocaine PATCH 5%* 1 PATCH TRANSDERM SCH (09:05)
[2016-07-17] MEDS: Cyanocobalamin TAB* 500 MCG PO SCH (09:06)
[2016-07-17] MEDS: Lisinopril TAB* 5 MG PO SCH (09:06)
[2016-07-17] MEDS: oxyCODONE TAB* 5 MG TAB PO PRN ×2 (09:14→17:20)
[2016-07-17] MEDS: Nystatin TOP POWDER* 15 GM BTL TOPICAL SCH ×3 (12:01→22:08)
--- NOTE | 2016-07-17 13:49 | DS ---
DATE OF ADMISSION: 07/10/2016. DATE OF DISCHARGE: 07/17/2016. STATUS DURING HOSPITALIZATION: Inpatient. PRIMARY CARE PROVIDER: [facility] staff. PRINCIPAL DISCHARGE DIAGNOSES: 1. Acute on chronic combined hypercarbic and hypoxic respiratory failure with need for noninvasive positive pressure ventilation (NIPPV) with adventism of stable status. 2. Potentially fluid overload treated with diuretics and adjustment in fluid status. 3. Right pleural effusion. 4. Obesity hypoventilation syndrome/obstructive sleep apnea. 5. Morbid obesity with BMI greater than 60. 6. Atrial fibrillation on chronic anticoagulation. 7. Pulmonary congestion. 8. Compensated metabolic alkalosis secondary to ongoing diuretic use. DISCHARGE MEDICATION REGIMEN: 1. Acetaminophen 325 mg tabs 650 p.o. q.6 hours prn pain/fever. 2. Albuterol nebulizer 2.5 mg/3 ml strength one or two inhalations every 4 hours as needed for shortness of breath. 3. Albuterol inhaler one puff q.4 hours prn shortness of breath. 4. Albuterol/Ipratropium one nebulizer every 4 hours prn shortness of breath. 5. Bisacodyl suppository 10 mg p.r. daily prn constipation. 6. Calcium carbonate 500 mg by mouth daily prn dyspepsia. 7. Cholecalciferol/vitamin D3 4000 units by mouth daily. 8. Cyanocobalamin/vitamin B12 1000 mcg daily. 9. Docusate 100 mg by mouth twice daily. 10. Ferrous Sulfate 325 mg by mouth daily. 11. Furosemide 80 mg by mouth as needed prn shortness of breath/fluid overload and 80 mg by mouth twice daily. 12. Glargine insulin 8 units subcu at bedtime. 13. Levothyroxine 400 mcg by mouth daily. 14. Lidocaine 5 percent patch applied to skin daily at affected areas. 15. Lisinopril 2.5 mg by mouth daily. 16. Loratadine/Claritin 10 mg by mouth daily. 17. Toprol XL 25 mg by mouth daily. 18. Multivitamin one tab by mouth once daily. 19. Protonix 20 mg by mouth daily. 20. Senna/Docusate 8.6/50 two tabs by mouth at bedtime. HISTORY OF PRESENT ILLNESS/HOSPITAL COURSE: Please see the history and physical by Dr. Douglas Hylton on 07/10/2016, as well as the hydraulic bull riveter operator consultation on 07/12/2016 at the point of decompensation, as well as subsequent hospital progress notes. In brief, Ms. Springer is a 70-year-old woman who was recently admitted to [facility] who had an acute episode of hypoxia with oxygen saturation dropping down into the 50s. The patient was placed on BiPAP, but did not improve dramatically. She was given a dose of Zaroxolyn and then got 80 mg of IV Lasix. She put out a fair amount of fluid over that time and was sent to the hospital as a result. The patient denies having chest pain during this time, but had some wheezing. She felt better and closer to her usual state of health and reported some salty food intake. The patient uses BiPAP normally in the evenings per her report. The patient was brought into the hospital and was persistently mildly hypoxic. The patient then decompensated on 07/12/2016 prompting a stat CTA to rule out PE, which was indeed negative. The patient was seen by the hydraulic bull riveter operator who suggested some Diamox doses for the effect of bicarb wasting. The patient was stabilized. She had several blood gases during the hospitalization showing carbon dioxide levels over 100. Again, this was treated effectively with BiPAP with her baseline CO2 levels presumed in the 70s given her bicarb levels that are in the mid to high 40s. The patient is otherwise stable. She did not suffer any appreciable renal failure during this hospitalization. She did drift from her baseline of 0.76 up to 1, but that is presumed to represent perhaps where she needs to be with respect to her intravascular volume and being kept a bit on the dry side given her propensity for pulmonary congestion. The patient is very immobile at this time secondary to her super morbid obesity and deconditioning. This is one of the goals of her stay at [facility] is to increase mobility. I believe she does move to chair at this point, but cannot effectively walk. On 07/17/2016, the patient seems to be at her baseline. She reports no pulmonary discomfort at rest. Certainly, she is deconditioned and so with exertion she is winded, but again that is one of the goals of the PT therapy she will receive at [facility]. I recommend strict compliance with BiPAP during any periods of sleep or resting and it is entirely possible that her hypoxia was a consequence of her elevated CO2 levels which if they rise above 90 , result in obligatory hypoxia. The patient certainly suffers from obstructive sleep apnea, obesity, hypoventilation with an element of potential fluid overload. One note for follow-up for the [facility] staff is that the patient's INR is elevated at approximately 4. She is having her Warfarin held and I would recommend rechecking an INR on July 20 with readjustment of her Warfarin dosing. For more details regarding this hospitalization, please see the full medical record, in particular the critical care and hospitalist progress notes during this complicated stay. CONDITION AT TRANSFER: Stable, but ever tenuous in this medically complex patient at baseline. Total time taken to discharge Ms. Springer was 50 minutes, greater than half that time was spent arranging the discharge logistics and communicating the plan of care to the patient [id number]. [id number]/CPS #: [id number] [id number]
[2016-07-17] MEDS: Cetirizine* 10 MG TAB PO SCH (18:15)
--- NOTE | 2016-07-17 18:38 | PN ---
Subjective Date of Service: 07/17/16 Interval History: . no new complaints. Eager to go back to [facility]. 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 . Family History: Unchanged from Admission Social History: Unchanged from Admission Past Medical History: Unchanged from Admission Objective Active Medications: . Acetaminophen (Tylenol Tab*) 650 mg PO Q6H PRN PRN Reason: PAIN Last Admin: 07/13/16 13:24 Dose: 650 mg Albuterol (Ventolin 2.5 Mg/3 Ml Neb.Carol*) 2.5 mg INH Q4H PRN PRN Reason: WHEEZING Albuterol/Ipratropium (Duoneb (Albuterol 2.5 Mg/Ipratropium 0.5 Mg)) 1 neb INH Q4H PRN PRN Reason: SHORTNESS OF BREATH Bisacodyl (Dulcolax Supp*) 10 mg [place] DAILY PRN PRN Reason: CONSTIPATION Calcium Carbonate (Tums*) 500 mg PO DAILY PRN PRN Reason: INDIGESTION Cetirizine HCl (Zyrtec*) 10 mg PO QPM [facility] Last Admin: 07/17/16 18:15 Dose: 10 mg Cholecalciferol (Vitamin D Tab*) 4,000 units PO DAILY [facility] Last Admin: 07/17/16 08:54 Dose: 4,000 units Cyanocobalamin (Vitamin B12 Tab*) 250 mcg PO DAILY [facility] Last Admin: 07/17/16 09:06 Dose: 250 mcg Dextrose (D50w Syringe 50 Ml*) 12.5 gm IV PUSH .FOR FS < 60 - SS PRN PRN Reason: FS < 60 Docusate Sodium (Colace Cap*) 100 mg PO BID [facility] Last Admin: 07/17/16 09:00 Dose: 100 mg Ferrous Sulfate (Ferrous Sulfate Tab*) 325 mg PO DAILY [facility] Last Admin: 07/17/16 09:02 Dose: 325 mg Insulin Glargine (Lantus(*)) 8 units SUBCUT BEDTIME [facility] Last Admin: 07/16/16 20:24 Dose: 8 units Insulin Human Lispro (Humalog*) 0 units SUBCUT ACHS [facility] PRN Reason: Protocol Last Admin: 07/17/16 17:43 Dose: Not Given Levothyroxine Sodium (Synthroid Tab*) 400 mcg PO DAILY@0600 [facility] Last Admin: 07/17/16 05:20 Dose: 400 mcg Lidocaine (Lidoderm 5% Patch*) 1 patch TRANSDERM DAILY [facility] Last Admin: 07/17/16 09:05 Dose: 1 patch Lisinopril (Prinivil Tab*) 2.5 mg PO DAILY [facility] Last Admin: 07/17/16 09:06 Dose: 2.5 mg Metoprolol Succinate (Toprol Xl Tab*) 25 mg PO DAILY [facility] Last Admin: 07/17/16 09:03 Dose: 25 mg Multivitamins/Minerals (Theragran/Minerals Tab*) 1 tab PO DAILY [facility] Last Admin: 07/17/16 09:02 Dose: 1 tab Nystatin (Nystatin Top Powder*) 1 applic TOPICAL TID [facility] Last Admin: 07/17/16 14:39 Dose: 1 applic Omeprazole (Prilosec Cap*) 20 mg PO 0600 [facility] Last Admin: 07/17/16 05:20 Dose: 20 mg Oxycodone HCl (Roxycodone Tab*) 5 mg PO Q6H PRN PRN Reason: PAIN - MODERATE Last Admin: 07/17/16 17:20 Dose: 5 mg Pharmacy Profile Note (Lidocaine Patch Remove*) 1 note PATCH OFF 2100 [facility] Last Admin: 07/16/16 21:13 Dose: 1 note Pharmacy Profile Note (Coumadin Daily Reminder*) 1 note FOLLOW UP 1700 [facility] Last Admin: 07/17/16 17:45 Dose: 1 note Senna (Senokot Tab*) 2 tab PO BEDTIME [facility] Last Admin: 07/16/16 20:24 Dose: Not Given Vital Signs 07/16/16 07/16/16 07/17/16 20:00 23:44 03:46 Temperature 96.4 F 97.6 F Pulse Rate 54 48 Respiratory 18 16 16 Rate Blood Pressure 112/41 112/50 (mmHg) O2 Sat by Pulse 96 100 Oximetry 07/17/16 07/17/16 07/17/16 06:47 08:00 09:14 Temperature 97.4 F Pulse Rate 58 Respiratory 14 18 18 Rate Blood Pressure 115/37 (mmHg) O2 Sat by Pulse 99 Oximetry Oxygen Devices in Use Now: Nasal Cannula - 3L 93% Appearance: NAD Ears/Nose/Mouth/Throat: Clear Oropharnyx Neck: Trachea Midline Respiratory: Symmetrical Chest Expansion and Respiratory Effort Cardiovascular: NL Sounds; No Murmurs; No JVD Abdominal: NL Sounds; No Tenderness; No Distention Lymphatic: No Cervical Adenopathy Extremities: - - morbidly obese Skin: No Rash or Ulcers Neurological: NL Sensation Lines/Tubes/Other Access: Clean, Dry and Intact Peripheral IV Nutrition: Taking PO's Result Diagrams: 07/17/16 06:02 07/17/16 06:02 Additional Lab and Data: . Microbiology and Other Data: Microbiology 07/10/16 22:50 Nasal Screen MRSA (PCR)(SASKIA) - Final Nasal Mrsa Positive Assess/Plan/Problems-Billing . Assessment: Ms Springer is a super morbidly obese female with a h/o chronic hypercarbic respiratory failure, type II DM, JOLEEN, hypothyroidism, h/o afib with SSS, HTN, HLD and GERD who presented to the ER with c/o low O2 saturations with stay complicated by hypoxic/hypercarbic respiratory failure - Patient Problems (1) Hypoxia Current Visit: Yes Status: Acute Priority: Medium Code(s): R09.02 - HYPOXEMIA Comment: Hypoxia improving. Rapid onset may suggest flash pulm edema improved with diuresis and NIPPV e/o congestive heart failure on CXR and CT with interstitial fluid. Last lasix 07/12. Although net negative since admission Limited by TAMAR contraction alkalosis, and low BP Cr and blood pressure suggest she is ~ euvolemic now (intravascularly at least) She does have a R pleural effusion though no need to tap at this time. Received 2L NS 07/15 for hypotension. CXR 07/16 - improved. still interstitial edema, but not excessive. hold at this level. (2) Chronic hypercapnic respiratory failure Current Visit: Yes Status: Acute Priority: High Comment: Acute exacerbation of Hypercarbia improved with use of BiPAP Continue BiPAP with sleep and as needed. Received 2 doses of acetazolamide. ABG appears compensated chronic resp acidosis To [facility] when stable (3) Elevated troponin Current Visit: Yes Status: Acute Priority: Medium Code(s): R74.8 - ABNORMAL LEVELS OF OTHER SERUM ENZYMES Comment: Likely related to demand ischemia from probable CHF. No further work up. Echo done previously at [facility] is limited due to the patient's habitus but EF was reportedly low normal. (4) Type II diabetes mellitus Current Visit: Yes Status: Acute Priority: High Comment: BS under good control. Continue lantus 8 with sliding scale (5) HTN (hypertension) Current Visit: Yes Status: Acute Priority: High Code(s): I10 - ESSENTIAL ( PRIMARY) HYPERTENSION Comment: lisinopril low dose metoprolol (6) Atrial fibrillation Current Visit: Yes Status: Acute Priority: High Code(s): I48.91 - UNSPECIFIED ATRIAL FIBRILLATION Comment: Supratherapeutic Hold today and repeat in AM (7) Hypothyroidism Current Visit: Yes Status: Acute Priority: High Code(s): E03.9 - HYPOTHYROIDISM, UNSPECIFIED Comment: Continue current dose of synthroid. TSH is still elevated- dose just adjusted last month. Follow up in a couple weeks. (8) GERD (gastroesophageal reflux disease) Current Visit: Yes Status: Acute Priority: High Code(s): K21.9 - GASTRO- ESOPHAGEAL REFLUX DISEASE WITHOUT ESOPHAGITIS Comment: Continue protonix (9) DVT prophylaxis Current Visit: Yes Status: Acute Priority: High Code(s): [id number] - Comment: coumadin Status and Disposition: Oxygen and BiPAP (during the day) need declining. Volume status probably about right 07/17/15 --> dc t [facility] when stable le
[2016-07-17] MEDS: Insulin GLARGINE(*) 1 UNITS UNIT SUBCUT SCH (22:02)
[2016-07-17] MEDS: Senna TAB PO SCH (22:06)
[2016-07-17] MEDS: Lidocaine Patch REMOVE* 1 NOTE MISC PATCH OFF SCH (22:08)
[2016-07-18] MEDS: Omeprazole CAP* 20 MG PO SCH (06:59)
[2016-07-18] MEDS: Levothyroxine TAB* 100 MCG TAB PO SCH (06:59)
[2016-07-18] MEDS: Nystatin TOP POWDER* 15 GM BTL TOPICAL SCH ×3 (09:00→21:31)
[2016-07-18] MEDS: Cholecalciferol TAB* 1000 UNITS PO SCH (10:21)
[2016-07-18] MEDS: Docusate CAP* 100 MG PO SCH ×2 (10:22→21:18)
[2016-07-18] MEDS: Cyanocobalamin TAB* 500 MCG PO SCH (10:22)
[2016-07-18] MEDS: Ferrous Sulfate TAB* 325 MG PO SCH (10:22)
[2016-07-18] MEDS: Lisinopril TAB* 5 MG PO SCH (10:22)
[2016-07-18] MEDS: Lidocaine PATCH 5%* 1 PATCH TRANSDERM SCH (10:23)
[2016-07-18] MEDS: Multivitamins/Minerals TAB PO SCH (10:23)
[2016-07-18] MEDS: Metoprolol Succinate XL TAB* 25 MG PO SCH (10:24)
[2016-07-18] MEDS: Insulin LISPRO* 1 UNITS UNIT SUBCUT SCH ×4 (11:07→21:19)
--- NOTE | 2016-07-18 13:02 | PN ---
Subjective Date of Service: 07/18/16 Interval History: . Patient deeply upset about being denied services by Rob at [facility]. She doesn't understand how, if she came from there, she can't go back. She doesn't feel much different other than how her breathing has recovered. I spent about 30 minutes consoling her and explaining how we can't always understand how or why insurance companies make the decisions they do. No one asked me about this... I left a message with Rob at x [phone] t joselin my opinion. But, I don't know when they will call back. Pt's is updated. Patient is done with acute care -- needs to go to [facility] to continue reconditioning. Nosocomial risk in hospital. . Family History: Unchanged from Admission Social History: Unchanged from Admission Past Medical History: Unchanged from Admission Objective Active Medications: . Acetaminophen (Tylenol Tab*) 650 mg PO Q6H PRN PRN Reason: PAIN Last Admin: 07/13/16 13:24 Dose: 650 mg Albuterol (Ventolin 2.5 Mg/3 Ml Neb.Carol*) 2.5 mg INH Q4H PRN PRN Reason: WHEEZING Albuterol/Ipratropium (Duoneb (Albuterol 2.5 Mg/Ipratropium 0.5 Mg)) 1 neb INH Q4H PRN PRN Reason: SHORTNESS OF BREATH Bisacodyl (Dulcolax Supp*) 10 mg ID DAILY PRN PRN Reason: CONSTIPATION Calcium Carbonate (Tums*) 500 mg PO DAILY PRN PRN Reason: INDIGESTION Cetirizine HCl (Zyrtec*) 10 mg PO QPM [facility] Last Admin: 07/17/16 18:15 Dose: 10 mg Cholecalciferol (Vitamin D Tab*) 4,000 units PO DAILY [facility] Last Admin: 07/18/16 10:21 Dose: 4,000 units Cyanocobalamin (Vitamin B12 Tab*) 250 mcg PO DAILY [facility] Last Admin: 07/18/16 10:22 Dose: 250 mcg Dextrose (D50w Syringe 50 Ml*) 12.5 gm IV PUSH .FOR FS < 60 - SS PRN PRN Reason: FS < 60 Docusate Sodium (Colace Cap*) 100 mg PO BID [facility] Last Admin: 07/18/16 10:22 Dose: 100 mg Ferrous Sulfate (Ferrous Sulfate Tab*) 325 mg PO DAILY [facility] Last Admin: 07/18/16 10:22 Dose: 325 mg Insulin Glargine (Lantus(*)) 8 units SUBCUT BEDTIME [facility] Last Admin: 07/17/16 22:02 Dose: 8 units Insulin Human Lispro (Humalog*) 0 units SUBCUT ACHS [facility] PRN Reason: Protocol Last Admin: 07/18/16 11:07 Dose: Not Given Levothyroxine Sodium (Synthroid Tab*) 400 mcg PO DAILY@0600 [facility] Last Admin: 07/18/16 06:59 Dose: 400 mcg Lidocaine (Lidoderm 5% Patch*) 1 patch TRANSDERM DAILY [facility] Last Admin: 07/18/16 10:23 Dose: 1 patch Lisinopril (Prinivil Tab*) 2.5 mg PO DAILY [facility] Last Admin: 07/18/16 10:22 Dose: 2.5 mg Metoprolol Succinate (Toprol Xl Tab*) 25 mg PO DAILY [facility] Last Admin: 07/18/16 10:24 Dose: 25 mg Multivitamins/Minerals (Theragran/Minerals Tab*) 1 tab PO DAILY [facility] Last Admin: 07/18/16 10:23 Dose: 1 tab Nystatin (Nystatin Top Powder*) 1 applic TOPICAL TID [facility] Last Admin: 07/17/16 22:08 Dose: 1 applic Omeprazole (Prilosec Cap*) 20 mg PO 0600 [facility] Last Admin: 07/18/16 06:59 Dose: 20 mg Oxycodone HCl (Roxycodone Tab*) 5 mg PO Q6H PRN PRN Reason: PAIN - MODERATE Last Admin: 07/17/16 17:20 Dose: 5 mg Pharmacy Profile Note (Lidocaine Patch Remove*) 1 note PATCH OFF 2100 [facility] Last Admin: 07/17/16 22:08 Dose: 1 note Pharmacy Profile Note (Coumadin Daily Reminder*) 1 note FOLLOW UP 1700 [facility] Last Admin: 07/17/16 17:45 Dose: 1 note Senna (Senokot Tab*) 2 tab PO BEDTIME [facility] Last Admin: 07/17/16 22:06 Dose: Not Given . Vital Signs 07/17/16 07/17/16 07/17/16 15:26 17:20 19:20 Temperature 97.8 F Pulse Rate 54 Respiratory 20 14 20 Rate Blood Pressure 106/44 (mmHg) O2 Sat by Pulse 98 Oximetry 07/17/16 07/17/16 07/17/16 19:26 22:05 23:16 Temperature 97.8 F 97.4 F Pulse Rate 67 66 Respiratory 16 20 16 Rate Blood Pressure 109/38 97/31 (mmHg) O2 Sat by Pulse 98 94 Oximetry Oxygen Devices in Use Now: Nasal Cannula - 3L 93% Appearance: NAD Ears/Nose/Mouth/Throat: NL Teeth, Lips, Gums Neck: NL Appearance and Movements; NL JVP Respiratory: Symmetrical Chest Expansion and Respiratory Effort Cardiovascular: NL Sounds; No Murmurs; No JVD Abdominal: NL Sounds; No Tenderness; No Distention Lymphatic: No Cervical Adenopathy Skin: No Rash or Ulcers Neurological: Alert and Oriented x 3 Lines/Tubes/Other Access: Clean, Dry and Intact Peripheral IV Nutrition: Taking PO's Result Diagrams: 07/17/16 06:02 07/17/16 06:02 Additional Lab and Data: . Microbiology and Other Data: Microbiology 07/10/16 22:50 Nasal Screen MRSA (PCR)(SASKIA) - Final Nasal Mrsa Positive Assess/Plan/Problems-Billing . Assessment: Ms Springer is a super morbidly obese female with a h/o chronic hypercarbic respiratory failure, type II DM, JOLEEN, hypothyroidism, h/o afib with SSS, HTN, HLD and GERD who presented to the ER with c/o low O2 saturations with stay complicated by hypoxic/hypercarbic respiratory failure - Patient Problems (1) Hypoxia Current Visit: Yes Status: Acute Priority: Medium Code(s): R09.02 - HYPOXEMIA Comment: Hypoxia improved. Rapid onset may suggest flash pulm edema improved with diuresis and NIPPV e/o congestive heart failure on CXR and CT with interstitial fluid. Last lasix /. Although net negative since admission Limited by TAMAR contraction alkalosis, and low BP Cr and blood pressure suggest she is ~ euvolemic now (intravascularly at least) She does have a R pleural effusion though no need to tap. Received 2L NS 07/15 for hypotension. CXR 07/16 - improved. still interstitial edema, but not excessive. hold at this level. (2) Chronic hypercapnic respiratory failure Current Visit: Yes Status: Acute Priority: High Comment: Acute exacerbation of Hypercarbia improved with use of BiPAP Continue BiPAP with sleep and as needed. Received 2 doses of acetazolamide. ABG appears compensated chronic resp acidosis To [facility] now stable (3) Elevated troponin Current Visit: Yes Status: Acute Priority: Medium Code(s): R74.8 - ABNORMAL LEVELS OF OTHER SERUM ENZYMES Comment: Likely related to demand ischemia from probable CHF. No further work up. Echo done previously at [facility] is limited due to the patient's habitus but EF was reportedly low normal. (4) Type II diabetes mellitus Current Visit: Yes Status: Acute Priority: High Comment: BS under good control. Continue lantus 8 with sliding scale (5) HTN (hypertension) Current Visit: Yes Status: Acute Priority: High Code(s): I10 - ESSENTIAL ( PRIMARY) HYPERTENSION Comment: lisinopril low dose metoprolol (6) Atrial fibrillation Current Visit: Yes Status: Acute Priority: High Code(s): I48.91 - UNSPECIFIED ATRIAL FIBRILLATION Comment: Supratherapeutic pharmacy dosing. (7) Hypothyroidism Current Visit: Yes Status: Acute Priority: High Code(s): E03.9 - HYPOTHYROIDISM, UNSPECIFIED Comment: Continue current dose of synthroid. TSH is still elevated- dose just adjusted last month. Follow up in a couple weeks. (8) GERD (gastroesophageal reflux disease) Current Visit: Yes Status: Acute Priority: High Code(s): K21.9 - GASTRO- ESOPHAGEAL REFLUX DISEASE WITHOUT ESOPHAGITIS Comment: Continue protonix (9) DVT prophylaxis Current Visit: Yes Status: Acute Priority: High Code(s): [id number] - Comment: coumadin Status and Disposition: Oxygen and BiPAP (during the day) need declining. Volume status probably about right 07/17/15 --> dc t [facility] when stable le
[2016-07-18] MEDS: oxyCODONE TAB* 5 MG TAB PO PRN ×2 (15:23→21:18)
[2016-07-18] MEDS ORDERED: Potassium Chlor TAB* 10 MEQ TAB.ER PO ONE (15:51)
[2016-07-18] MEDS ORDERED: Furosemide IV* 10 MG/ML VIAL (40 MG) IV ONE (15:52)
[2016-07-18] MEDS: Cetirizine* 10 MG TAB PO SCH (17:10)
[2016-07-18] MEDS ORDERED: Warfarin TAB(*) 2 MG PO ONE (18:00)
[2016-07-18] MEDS: Senna TAB PO SCH (21:18)
[2016-07-18] MEDS: Insulin GLARGINE(*) 1 UNITS UNIT SUBCUT SCH (21:19)
[2016-07-18] MEDS: Lidocaine Patch REMOVE* 1 NOTE MISC PATCH OFF SCH (21:31)
[2016-07-19] MEDS: Levothyroxine TAB* 100 MCG TAB PO SCH (06:06)
[2016-07-19] MEDS: Omeprazole CAP* 20 MG PO SCH (06:06)
[2016-07-19 06:15] LABS: Hematocrit 28 % (35-47); Hemoglobin 8.2 g/dl (12.0-16.0); Mean Corpuscular HGB Conc 30 g/dl (31-36); Mean Corpuscular Hemoglobin 22 pg (27-31); Mean Platelet Volume 9 um3 (7.4-10.4); Red Blood Count 3.69 10^6/ul (4.0-5.4); White Blood Count 5.7 10^3/ul (3.5-10.8)
[2016-07-19 06:26] LABS: Comments Flag Yes; Mean Corpuscular Volume 75 fL (80-97); Red Cell Distribution Width 24 % (10.5-15)
[2016-07-19 06:33] LABS: BUN/Creatinine Ratio 18.1 (8-20); Calcium 9.1 mg/dL (8.6-10.3); EGFR African American 46.6 (>60); EGFR Non-African American 36.2 (>60); Phosphorus 3.9 mg/dL (2.5-5.0)
[2016-07-19] MEDS: Insulin LISPRO* 1 UNITS UNIT SUBCUT SCH ×4 (09:13→20:45)
[2016-07-19] MEDS: Cholecalciferol TAB* 1000 UNITS PO SCH (09:14)
[2016-07-19] MEDS: Multivitamins/Minerals TAB PO SCH (09:14)
[2016-07-19] MEDS: Cyanocobalamin TAB* 500 MCG PO SCH (09:16)
[2016-07-19] MEDS: Docusate CAP* 100 MG PO SCH ×2 (09:16→20:41)
[2016-07-19] MEDS: Metoprolol Succinate XL TAB* 25 MG PO SCH ×2 (09:16→09:52)
[2016-07-19] MEDS: Ferrous Sulfate TAB* 325 MG PO SCH (09:17)
[2016-07-19] MEDS: Lidocaine PATCH 5%* 1 PATCH TRANSDERM SCH (09:17)
[2016-07-19] MEDS: Lisinopril TAB* 5 MG PO SCH (09:18)
[2016-07-19] MEDS: oxyCODONE TAB* 5 MG TAB PO PRN ×2 (09:25→20:41)
[2016-07-19] MEDS: Nystatin TOP POWDER* 15 GM BTL TOPICAL SCH ×3 (09:26→20:46)
[2016-07-19] MEDS ORDERED: NS 0.9% 500 ML BAG* 500 ML IV ONE (11:00)
--- NOTE | 2016-07-19 16:39 | PN ---
Subjective Date of Service: 07/19/16 Interval History: . no change in clinical condition. decreased U-out and a bump in Cr noted -- ? hypovolemia/dehydration? got lasix yesterday...confusing volume situation 2/2 obesity. Will give small bolus x 1 or 2... recheck labs in AM. salazar out by RN --> follow bladder scan. . Family History: Unchanged from Admission Social History: Unchanged from Admission Past Medical History: Unchanged from Admission Objective Active Medications: . Acetaminophen (Tylenol Tab*) 650 mg PO Q6H PRN PRN Reason: PAIN Last Admin: 07/13/16 13:24 Dose: 650 mg Albuterol (Ventolin 2.5 Mg/3 Ml Neb.Carol*) 2.5 mg INH Q4H PRN PRN Reason: WHEEZING Albuterol/Ipratropium (Duoneb (Albuterol 2.5 Mg/Ipratropium 0.5 Mg)) 1 neb INH Q4H PRN PRN Reason: SHORTNESS OF BREATH Bisacodyl (Dulcolax Supp*) 10 mg [place] DAILY PRN PRN Reason: CONSTIPATION Calcium Carbonate (Tums*) 500 mg PO DAILY PRN PRN Reason: INDIGESTION Cetirizine HCl (Zyrtec*) 10 mg PO QPM [facility] Last Admin: 07/18/16 17:10 Dose: 10 mg Cholecalciferol (Vitamin D Tab*) 4,000 units PO DAILY [facility] Last Admin: 07/19/16 09:14 Dose: 4,000 units Cyanocobalamin (Vitamin B12 Tab*) 250 mcg PO DAILY [facility] Last Admin: 07/19/16 09:16 Dose: 250 mcg Dextrose (D50w Syringe 50 Ml*) 12.5 gm IV PUSH .FOR FS < 60 - SS PRN PRN Reason: FS < 60 Docusate Sodium (Colace Cap*) 100 mg PO BID [facility] Last Admin: 07/19/16 09:16 Dose: 100 mg Ferrous Sulfate (Ferrous Sulfate Tab*) 325 mg PO DAILY [facility] Last Admin: 07/19/16 09:17 Dose: 325 mg Insulin Glargine (Lantus(*)) 8 units SUBCUT BEDTIME [facility] Last Admin: 07/18/16 21:19 Dose: 8 units Insulin Human Lispro (Humalog*) 0 units SUBCUT ACHS [facility] PRN Reason: Protocol Last Admin: 07/19/16 12:54 Dose: 3 units Levothyroxine Sodium (Synthroid Tab*) 400 mcg PO DAILY@0600 [facility] Last Admin: 07/19/16 06:06 Dose: 400 mcg Lidocaine (Lidoderm 5% Patch*) 1 patch TRANSDERM DAILY [facility] Last Admin: 07/19/16 09:17 Dose: 1 patch Lisinopril (Prinivil Tab*) 2.5 mg PO DAILY [facility] Last Admin: 07/19/16 09:18 Dose: 2.5 mg Metoprolol Succinate (Toprol Xl Tab*) 25 mg PO DAILY [facility] Last Admin: 07/19/16 09:52 Dose: Not Given Multivitamins/Minerals (Theragran/Minerals Tab*) 1 tab PO DAILY [facility] Last Admin: 07/19/16 09:14 Dose: 1 tab Nystatin (Nystatin Top Powder*) 1 applic TOPICAL TID [facility] Last Admin: 07/19/16 12:56 Dose: 1 applic Omeprazole (Prilosec Cap*) 20 mg PO 0600 [facility] Last Admin: 07/19/16 06:06 Dose: 20 mg Oxycodone HCl (Roxycodone Tab*) 5 mg PO Q6H PRN PRN Reason: PAIN - MODERATE Last Admin: 07/19/16 09:25 Dose: 5 mg Pharmacy Profile Note (Lidocaine Patch Remove*) 1 note PATCH OFF 2100 [facility] Last Admin: 07/18/16 21:31 Dose: 1 note Pharmacy Profile Note (Coumadin Per Pharmacy*) 1 note FOLLOW UP 1700 [facility] Last Admin: 07/18/16 17:09 Dose: 1 note Senna (Senokot Tab*) 2 tab PO BEDTIME [facility] Last Admin: 07/18/16 21:18 Dose: 2 tab Warfarin Sodium (Coumadin Tab(*)) 2 mg PO ONCE ONE Stop: 07/19/16 17:01 . Vital Signs 07/18/16 07/18/16 07/18/16 16:59 17:23 20:00 Temperature 99.0 F Pulse Rate 57 Respiratory 18 20 Rate Blood Pressure 100/34 (mmHg) O2 Sat by Pulse 97 Oximetry 07/18/16 07/18/16 07/18/16 21:18 23:18 23:47 Temperature 98.3 F Pulse Rate 57 Respiratory 18 18 19 Rate Blood Pressure 104/41 (mmHg) O2 Sat by Pulse 97 Oximetry Oxygen Devices in Use Now: Nasal Cannula - 3L 93% Appearance: NAD Ears/Nose/Mouth/Throat: Clear Oropharnyx Neck: NL Appearance and Movements; NL JVP Respiratory: Symmetrical Chest Expansion and Respiratory Effort Cardiovascular: NL Sounds; No Murmurs; No JVD Abdominal: - - morbidly obese Lymphatic: No Cervical Adenopathy Extremities: - - + LE edema Skin: No Rash or Ulcers Neurological: Alert and Oriented x 3 Lines/Tubes/Other Access: Clean, Dry and Intact Peripheral IV Nutrition: Taking PO's Result Diagrams: 07/19/16 06:05 07/19/16 06:05 Additional Lab and Data: . Microbiology and Other Data: Microbiology 07/10/16 22:50 Nasal Screen MRSA (PCR)(SASKIA) - Final Nasal Mrsa Positive Assess/Plan/Problems-Billing . Assessment: Ms Springer is a super morbidly obese female with a h/o chronic hypercarbic respiratory failure, type II DM, JOLEEN, hypothyroidism, h/o afib with SSS, HTN, HLD and GERD who presented to the ER with c/o low O2 saturations with stay complicated by hypoxic/hypercarbic respiratory failure. better now on nighly BiPAP. . - Patient Problems (1) Hypoxia Current Visit: Yes Status: Acute Priority: Medium Code(s): R09.02 - HYPOXEMIA Comment: Hypoxia improved. Rapid onset may suggest flash pulm edema improved with diuresis and NIPPV e/o congestive heart failure on CXR and CT with interstitial fluid. Last lasix 07/19. -- weight actually positive Limited by TAMAR contraction alkalosis, and low BP ?? IV hypovolemia? -- confusing ! Cr and blood pressure suggest she is perhaps IV depleted got 500 cc NS 07/19 -- rechecking creatinine 07/20 She does have a R pleural effusion though no need to tap. (2) Chronic hypercapnic respiratory failure Current Visit: Yes Status: Acute Priority: High Comment: Acute exacerbation of Hypercarbia improved with use of BiPAP Continue BiPAP with sleep and as needed. Received 2 doses of acetazolamide. ABG appears compensated chronic resp acidosis To [facility] now stable (3) Elevated troponin Current Visit: Yes Status: Acute Priority: Medium Code(s): R74.8 - ABNORMAL LEVELS OF OTHER SERUM ENZYMES Comment: Likely related to demand ischemia from probable CHF. No further work up. Echo done previously at [facility] is limited due to the patient's habitus but EF was reportedly low normal. (4) Type II diabetes mellitus Current Visit: Yes Status: Acute Priority: High Comment: BS under good control. Continue lantus 8 with sliding scale (5) HTN (hypertension) Current Visit: Yes Status: Acute Priority: High Code(s): I10 - ESSENTIAL ( PRIMARY) HYPERTENSION Comment: lisinopril low dose metoprolol (6) Atrial fibrillation Current Visit: Yes Status: Acute Priority: High Code(s): I48.91 - UNSPECIFIED ATRIAL FIBRILLATION Comment: Supratherapeutic pharmacy dosing. (7) Hypothyroidism Current Visit: Yes Status: Acute Priority: High Code(s): E03.9 - HYPOTHYROIDISM, UNSPECIFIED Comment: Continue current dose of synthroid. TSH is still elevated- dose just adjusted last month. Follow up in a couple weeks. (8) GERD (gastroesophageal reflux disease) Current Visit: Yes Status: Acute Priority: High Code(s): K21.9 - GASTRO- ESOPHAGEAL REFLUX DISEASE WITHOUT ESOPHAGITIS Comment: Continue protonix (9) DVT prophylaxis Current Visit: Yes Status: Acute Priority: High Code(s): [id number] - Comment: coumadin Status and Disposition: Oxygen and BiPAP (during the day) need declining. Volume status probably about right 07/17/15 --> dc t [facility] when stable le
[2016-07-19] MEDS ORDERED: Warfarin TAB(*) 2 MG PO ONE (17:00)
--- NOTE | 2016-07-19 17:23 | RAD ---
INDICATION: Short of breath COMPARISON: Chest x-ray July 16, 2016 TECHNIQUE: An AP portable view obtained at 1657 hours is submitted. FINDINGS: Bones/Soft Tissues: There are no acute bony findings. There is a left-sided cardiac pacemaker Cardiomediastinal: The cardiac silhouette is enlarged. The central pulmonary vessels and interstitium are prominent compatible with mild to moderate interstitial congestion. There is mild worsening Lungs: There are no focal infiltrates. Pleura: Small bilateral pleural effusions are suspected. Other: None IMPRESSION: MILD TO MODERATE CONGESTION WITH MILD WORSENING.
[2016-07-19] MEDS: Cetirizine* 10 MG TAB PO SCH (17:29)
[2016-07-19] MEDS: Senna TAB PO SCH (20:41)
[2016-07-19] MEDS: Insulin GLARGINE(*) 1 UNITS UNIT SUBCUT SCH (20:42)
[2016-07-20] MEDS: Lidocaine Patch REMOVE* 1 NOTE MISC PATCH OFF SCH (00:15)
[2016-07-20] MEDS: Omeprazole CAP* 20 MG PO SCH (05:51)
[2016-07-20] MEDS: Levothyroxine TAB* 100 MCG TAB PO SCH (05:51)
[2016-07-20] MEDS: Insulin LISPRO* 1 UNITS UNIT SUBCUT SCH ×2 (07:29→12:51)
[2016-07-20 07:55] VITALS: BP 103/37
[2016-07-20] MEDS: Lisinopril TAB* 5 MG PO SCH (08:15)
[2016-07-20] MEDS: Metoprolol Succinate XL TAB* 25 MG PO SCH (08:16)
[2016-07-20] MEDS: Cyanocobalamin TAB* 500 MCG PO SCH (08:16)
[2016-07-20] MEDS: oxyCODONE TAB* 5 MG TAB PO PRN ×2 (08:16→14:15)
[2016-07-20] MEDS: Lidocaine PATCH 5%* 1 PATCH TRANSDERM SCH (08:18)
[2016-07-20] MEDS: Multivitamins/Minerals TAB PO SCH (08:21)
[2016-07-20] MEDS: Ferrous Sulfate TAB* 325 MG PO SCH (08:21)
[2016-07-20] MEDS: Nystatin TOP POWDER* 15 GM BTL TOPICAL SCH (08:27)
[2016-07-20] MEDS: Docusate CAP* 100 MG PO SCH (08:28)
[2016-07-20] MEDS: Cholecalciferol TAB* 1000 UNITS PO SCH (08:28)
[2016-07-20] MEDS ORDERED: Warfarin TAB(*) 2 MG PO ONE (17:00)
== END 2016-07-20 14:45 | DRG 194 ==
LOC: ED 17:40 → ICU 18:40 → MEDTELE 21:00 → ICU 07-12 09:18 → MED 07-16 14:45
PROVIDERS: ADMIT Internal Medicine; ATTEND Internal Medicine
PROC: 5A09557 Assistance with Respiratory Ventilation, Greater than 96 Consecutive Hours, Continuous Positive Airway Pressure (ICD-10-PCS; principal; 2016-07-10)
DX: I11.0 Hypertensive heart disease with heart failure (principal); J96.22 Acute and chronic respiratory failure with hypercapnia; J96.21 Acute and chronic respiratory failure with hypoxia; E87.3 Alkalosis; I95.9 Hypotension, unspecified; K31.84 Gastroparesis; I48.91 Unspecified atrial fibrillation; E11.40 Type 2 diabetes mellitus with diabetic neuropathy, unspecified; E11.43 Type 2 diabetes mellitus with diabetic autonomic (poly)neuropathy; E66.2 Morbid (severe) obesity with alveolar hypoventilation; Z68.44 Body mass index [BMI] 60.0-69.9, adult; T50.2X5A Adverse effect of carbonic-anhydrase inhibitors, benzothiadiazides and other diuretics, initial encounter; G47.33 Obstructive sleep apnea (adult) (pediatric); J45.909 Unspecified asthma, uncomplicated; E03.9 Hypothyroidism, unspecified; E78.5 Hyperlipidemia, unspecified; J44.9 Chronic obstructive pulmonary disease, unspecified; R79.1 Abnormal coagulation profile; D64.9 Anemia, unspecified; I50.33 Acute on chronic diastolic (congestive) heart failure; Z88.5 Allergy status to narcotic agent; Z95.0 Presence of cardiac pacemaker; Z87.891 Personal history of nicotine dependence; Z80.9 Family history of malignant neoplasm, unspecified; Z82.49 Family history of ischemic heart disease and other diseases of the circulatory system
CPT/HCPCS: 36415; 36600; 71010; 71275; 80048; 80053; 82550; 82803; 83605; 83735; 83880; 84100; 84443; 84484; 85025; 85027; 85060; 85610; 85730; 87641; 90686; 93005; 94640; 94660; 94760; A9270-GY; G0378; J1120; J1940; J3480; Q9967